=== PATIENT | female | born 1955 | race Caucasian/White ===

== ENCOUNTER → 2018-02-18 15:20 | Outpatient (CLI) | payer OTHER, SELFPAY ==
[2018-02-24 08:29] LABS: HPV Reflexed? NOT INDICATED
== END ==
PROVIDERS: Visit Provider Obstetrics & Gynecology
DX: Z12.4 Encounter for screening for malignant neoplasm of cervix (principal)
CPT/HCPCS: 88175; G0145

== ENCOUNTER → 2018-02-25 08:37 | Outpatient (CLI) | payer OTHER, SELFPAY ==
--- NOTE | 2018-02-25 08:40 | BI_ITS ---
MAMMOGRAPHY - BILATERAL SCREENING REASON FOR EXAM: Female, 62 years old. Routine annual screening examination. PERTINENT HISTORY: Non-contributory. TECHNIQUE: Digital bilateral breast wanda (3D mammographic acquisition) in the CC and MLO projections. 2-D mediolateral oblique (MLO) and craniocaudad (CC) views of both breasts were obtained. CAD: Full Field Digital Mammography with Computer Added Detection was performed. COMPARISON: Comparison is made with prior examination dated January 13, 2017 and August 16, 2014. FINDINGS: Breast Composition: There are scattered areas of fibroglandular density. There are no dominant masses or suspicious calcifications. No other significant abnormalities are identified. There has been no significant change since the prior study. BI/SCREENING MAMM (CAD), BILAT IMPRESSION: Stable bilateral screening mammogram. Yearly follow-up mammogram recommended. (A) ASSESSMENT CATEGORY: BIRADS Category 1: Negative. A letter regarding these results will be sent to the patient by the facility within 30 days. Approximately 10% of breast cancers are not detected by mammography. A normal mammogram should not delay biopsy of a clinically suspicious abnormality. [id number] Electronically Signed: Eusebio Juares MD at 13:37 EDT Tel [phone], Service support ,
== END ==
PROVIDERS: Family Provider Internal Medicine; PCP Internal Medicine; Visit Provider Obstetrics & Gynecology
DX: Z12.31 Encounter for screening mammogram for malignant neoplasm of breast (principal)
CPT/HCPCS: 77063; 77067

== ENCOUNTER → 2018-07-27 10:02 | Outpatient (CLI) | payer MEDICARE, OTHER, SELFPAY ==
[2017-08-21 12:50] VITALS: BMI 31.1
[2018-07-27 12:58] LABS: ALB/GLOB Ratio 1.2 RATIO (0.9-2.4); AST(SGOT) 14 U/L (15-37); Alanine Aminotransfer ALT/SGPT 31 U/L (13-56); Albumin, Serum 3.8 g/dL (3.2-5.0); Alkaline Phosphatase 83 U/L (45-117); Anion Gap 8 (5-15); BUN 9 mg/dL (7-18); BUN/Creat Ratio 12.1 RATIO (10-20); Calcium,Total 9.1 mg/dL (8.5-10.1); Chloride 106 mmol/L (98-107); Creatinine, Serum 0.74 mg/dL (0.55-1.02); EST Glomerular Filtration Rate 83 mL/min (>60); Est Glom Filt Rate - Afr Amer 101 mL/min (>60); Globulin 3.3 g/dL (2.2-4.2); Glucose 94 mg/dL (74-106); Potassium 3.9 mmol/L (3.5-5.1); Protein, Total 7.1 g/dL (6.4-8.2); Sodium Level 144 mmol/L (136-145)
[2018-07-27 13:00] LABS: Hematocrit 40.8 % (37-47); Mean Corp Hgb Conc 31.9 g/gl (32-36); Mean Corpuscular Hgb 30.3 pg (27.0-32.0); Mean Corpuscular Volume 95.1 fL (81-99); Mean Platelet Vol. 10.9 fl (6.2-12.0); Platelet Count 348 K/mm3 (150-450); RBC Distribution Width CV 13.2 % (11.6-14.6); RBC Distribution Width SD 44.5 fl (35.1-43.9); Red Blood Count 4.29 M/mm3 (4.2-5.4); White Blood Count 7.4 K/mm3 (4.4-11.0)
[2018-07-27 13:02] LABS: Scan Indicated on CBC? Y/N NO
[2018-07-27 14:49] LABS: Erythrocyte Sedimentation Rate 3 mm/hr (0-30)
== END ==
PROVIDERS: Family Provider Internal Medicine; PCP Internal Medicine; Referring Provider Internal Medicine Gastroenterology; Visit Provider Internal Medicine Gastroenterology
DX: R10.9 Unspecified abdominal pain (principal)
CPT/HCPCS: 36415; 80053; 85027; 85652

== ENCOUNTER → 2018-07-29 07:03 | Outpatient (CLI) | payer MEDICARE, OTHER, SELFPAY ==
--- NOTE | 2018-07-29 07:06 | CT_ITS ---
STUDY: CT ABDOMEN AND PELVIS WITH CONTRAST REASON FOR EXAM: Female, 63 years old. Weight loss RADIATION DOSAGE (If Supplied By Facility): CTDIvol = ( 14.69 ) mGy, DLP = ( 1086.70 ) mGycm TECHNIQUE: Transaxial images were obtained from the dome of the diaphragm to the symphysis pubis with oral contrast. Isovue 300 100 IV/Oral was administered. Sagittal and coronal images were reconstructed. Individualized dose optimization techniques were used for this CT. COMPARISON: September 04, 2016. FINDINGS: The visualized lung bases are unremarkable. There are aortic valvular calcifications. Normal liver. Normal gallbladder and extrahepatic biliary system. Normal spleen. Normal pancreas. Normal bilateral adrenal glands. Normal right kidney. Normal left kidney. There is wall thickening of the distal stomach with probable ulcers, series 2 image 42/136 through 44/136. Normal small intestine. There are multiple colonic diverticula consistent with diverticulosis. The appendix is visualized and appears normal. There is diffuse atherosclerotic calcification of the abdominal aorta, without a demonstrated aneurysm. Normal inferior vena cava. Normal retroperitoneum. Normal urinary bladder. Normal visualized uterus. There is no free fluid in the abdomen or pelvis. Normal abdominal wall. There are diffuse degenerative changes of the visualized lumbar spine. CT/Abdomen/Pelvis WITH Contrast IMPRESSION: Wall thickening of the stomach with gastritis and probable ulcers. Colonic diverticulosis. No obstruction or abscess. Electronically Signed: Titus Wren MD at 8:35 EST , Service support ,
== END ==
PROVIDERS: Family Provider Internal Medicine; PCP Internal Medicine; Referring Provider Internal Medicine Gastroenterology; Visit Provider Internal Medicine Gastroenterology
DX: R63.4 Abnormal weight loss (principal); R10.9 Unspecified abdominal pain
CPT/HCPCS: 74177; Q9967

== ENCOUNTER → 2018-08-16 15:39 | Outpatient (CLI) | payer MEDICARE, OTHER, SELFPAY ==
[2017-08-21 12:50] VITALS: BMI 31.1
--- NOTE | 2018-08-16 | IMM_PTH ---
PATIENT: VIGNESH VENCES LOC: [facility] U#:[id number] AGE/SX: 70/F ROOM: RE08/16/[address]: Dr. Bryce Coulter MD : 1955 BED: DIS: SPEC #: [id number] RECD: 08/18/18 11:44 STATUS: RIAN REAnnabelle #: [id number] JOSIE: 08/16/18 00:[address]: Bryce Coulter DEPT: IMMUNOHISTOCHEMISTRY RECD BY: Kell Fraser ENTERED: 08/18/18 11:44 SP TYPE: IMMUNO OTHR DR: Dr. Sneha Veronica DO Tissues: B - Stomach, NOS Procedures: H Pylori (initial) PHYSICIAN & INSTITUTION [place] [id number] SPECIMEN INFORMATION: Tissue Source: B - Gastric antrum/body, biopsy Clinical Info: Abdomen pain Specimen Number: [id number] CPT code: 68379 METHODOLOGY: Deparaffinized sections of prefer/formalin-fixed tissue or PAP/DQ stained slides are incubated with monoclonal/polyclonal antibodies/oligonucleotide probes. Localization is made via biotin free immunoperoxidase method. Appropriate controls are performed and reacted as expected. Results on target cell population are indicated in the following table: RESULTS: ANTIBODY / CLONE RESULT Block B H Pylori (polyclonal) negative These tests were developed and their performance characteristics determined by [facility]. They may not have been cleared or approved by the U.S. Food and Drug Administration. The FDA has determined that such clearance or approval is not necessary. INTERPRETATION: B. Gastric antrum/body, biopsy: Negative for Helicobacter pylori organisms. AM:jensen 08/25/18
--- NOTE | 2018-08-16 12:15 | EGD_PTH ---
PATIENT: VIGNESH VENCES [facility] U#:[id number] AGE/SX: 70/F ROOM: RE08/16/[address]: Dr. Bryce Coulter MD : 1955 BED: DIS: SPEC #: [id number] RECD: 08/16/18 15:17 STATUS: RIAN REAnnabelle #: [id number] JOSIE: 08/16/18 12:[address]: Bryce Coulter DEPT: SURGICAL PATHOLOGY RECD BY: Iglesia Potts ENTERED: 08/17/18 10:10 SP TYPE: EGD BIOPSY OT DR: Dr. Sneha Veronica, [facility] Tissues: A - Duodenum, NOS B - Gastric mucous membrane Procedures: Surgery Specimen Level IV HEADER OPERATION: EGD with biopsy PRE-OP DIAGNOSIS: Abdomen pain TISSUE SUBMITTED: A - Duodenum biopsy, rule out Crohn's, B - Gastric antrum/body biopsy, rule out gastritis MICROSCOPIC DIAGNOSIS A. Duodenum, biopsy: No pathologic change. No evidence of Crohn's enteritis. B. Gastric antrum/body, biopsy: Mild chronic gastritis. See comment. AM:jensen 08/18/18 COMMENT B. The results of immunohistochemistry for Helicobacter pylori will be reported separately ([id number]). MICROSCOPIC DESCRIPTION Slides are reviewed. GROSS DESCRIPTION A - Received in fixative is one container labeled with the patient's name and designated duodenum. The specimen consists of two irregular fragments of light bundy soft tissue that in aggregate measure 0.5 x 0.3 x 0.1 cm. The specimen is totally submitted in one cassette. B - Received in fixative is one container labeled with the patient's name and designated gastric antrum. The specimen consists of three irregular fragments of light bundy soft tissue that in aggregate measure 0.6 x 0.3 x 0.1 cm. The specimen is totally submitted in one cassette. / AM:jensen 08/17/18 TC:3 CPT: 86011 x2
== END ==
PROVIDERS: Family Provider Internal Medicine; PCP Internal Medicine; Referring Provider Internal Medicine Gastroenterology; Visit Provider Internal Medicine Gastroenterology
DX: R10.9 Unspecified abdominal pain (principal); K29.50 Unspecified chronic gastritis without bleeding
CPT/HCPCS: 88305; 88342

== ENCOUNTER → 2018-11-21 15:39 | Outpatient (CLI) | payer MEDICARE, OTHER, SELFPAY ==
[2017-08-21 12:50] VITALS: BMI 31.1
--- NOTE | 2018-11-17 11:54 | COLBX_PTH ---
PATIENT: VIGNESH VENCES LOC: [facility] U#:[id number] AGE/SX: 70/F ROOM: RE11/21/[address]: Dr. Bryce Coulter MD : 1955 BED: DIS: SPEC #: [id number] RECD: 11/21/18 15:27 STATUS: RIAN TANIA #: [id number] JOSIE: 11/17/18 11:[address]: Bryce Coulter DEPT: SURGICAL PATHOLOGY RECD BY: Micha Chowdary ENTERED: 11/22/18 09:24 SP TYPE: COLON BX OTHR DR: Dr. Sneha Veronica, [facility] Tissues: A - Transverse colon B - Right colon Procedures: Surgery Specimen Level IV HEADER OPERATION: Colonoscopy with polypectomy PRE-OP DIAGNOSIS: Abdomen pain TISSUE SUBMITTED: A - Transverse polyps biopsies, rule out adenoma, B - Right colon polyp biopsies, rule out adenoma MICROSCOPIC DIAGNOSIS A. Transverse colon polyps, biopsy: Fragments of tubular adenoma. B. Right colon polyp, biopsy: Fragments of tubular adenoma. MIRIAM:jensen 11/23/18 MICROSCOPIC DESCRIPTION Slides are reviewed. GROSS DESCRIPTION A - Received in fixative is one container labeled with the patient's name and designated transverse polyp biopsy. The specimen consists of multiple irregular fragments of light bundy soft tissue that in aggregate measure 2.5 x 1 x 0.3 cm. The specimen is totally submitted in one cassette. B - Received in fixative is one container labeled with the patient's name and designated right colon polyp biopsy. The specimen consists of multiple irregular fragments of light bundy soft tissue that in aggregate measure 1.5 x 0.3 x 0.1 cm. The specimen is totally submitted in one cassette. / MIRIAM:jensen 11/22/18 TC:1 CPT: 55312 x2
== END ==
PROVIDERS: Family Provider Internal Medicine; PCP Internal Medicine; Referring Provider Internal Medicine Gastroenterology; Visit Provider Internal Medicine Gastroenterology
DX: R10.9 Unspecified abdominal pain (principal)
CPT/HCPCS: 88305

== ENCOUNTER → 2019-02-28 15:47 | Outpatient (CLI) | payer MEDICARE, OTHER, SELFPAY ==
--- NOTE | 2019-02-28 15:49 | BI_ITS ---
MAMMOGRAPHY - BILATERAL SCREENING REASON FOR EXAM: Female, 63 years old. Routine annual screening examination. PERTINENT HISTORY: Non-contributory. TECHNIQUE: Digital bilateral breast angelica (3D mammographic acquisition) in the CC and MLO projections. 2-D mediolateral oblique (MLO) and craniocaudad (CC) views of both breasts were obtained. CAD: Full Field Digital Mammography with Computer Added Detection was performed. COMPARISON: Comparison is made with prior study dated February 25, 2018 and January 13, 2017. FINDINGS: Breast Composition: There are scattered areas of fibroglandular density. There are no dominant masses or suspicious calcifications. No other significant abnormalities are identified. There has been no significant change since the prior study. BI/SCREEN MAMM (CAD) W/ANGELICA BILAT IMPRESSION: Stable bilateral screening mammogram. Yearly follow-up mammogram recommended. (A) ASSESSMENT CATEGORY: BIRADS Category 1: Negative. A letter regarding these results will be sent to the patient by the facility within 30 days. Approximately 10% of breast cancers are not detected by mammography. A normal mammogram should not delay biopsy of a clinically suspicious abnormality. [id number] Electronically Signed: Eusebio Juares, at 8:56 EDT , Service support ,
--- NOTE | 2019-02-28 16:01 | BD_ITS ---
STUDY: DUAL ENERGY X-RAY ABSORPTIOMETRY / DXA REASON FOR EXAM: Female, 63 years old. The patient is postmenopausal. Loss of height. TECHNIQUE: Bone Mineral Density (BMD) measurements of lumbar spine and bilateral hips were obtained. COMPARISON: Comparison is made with prior study dated June 29, 2013. FINDINGS: Lumbar Spine (L1-L4): g/cm2 (1.011) / T-score (-1.6) / Z-score (0.0) Findings are suggestive of osteopenia with a moderate fracture risk. Left Femur Total: g/cm2 (0.925) / T-score (-0.7) / Z-score (0.6) Left Femoral Neck: g/cm2 (0.879) / T-score (-1.1) / Z-score (0.4) Right Femur Total: g/cm2 (0.843) / T-score (-1.3) / Z-score (-0.1) Right Femoral Neck: g/cm2 (0.858) / T-score (-1.3) / Z-score (0.2) The T-Scores on the most recent prior examination were: Lumbar Spine (L1-L4): There has been worsening of bone density since the previous examination. Left Femur Total: which represents a worsening of 7.9%. Right Femur Total: which represents a worsening of 13%. BD/Dexa Bone Density Study IMPRESSION: The patient is considered osteopenic as outlined below according to World Trevor Organization (WHO) criteria with a moderate fracture risk. There has been worsening of bone density since the previous examination. Reference Information: The T-score is the number of standard deviations above or below the standard which is normal for young adults at their peak bone mineral density. The World Health Organization (WHO) interprets the T-scores as follows: Above -1 Normal bone density Between -1 and -2.5 Osteopenia Equal to / or below -2.5 Osteoporosis As a practical clinical guideline, osteopenia may be graded as follows: Mild -1 through -1.5 Moderate -1.6 through -2.0 Severe -2.1 through -2.4 The Z-score is the number of standard deviations above or below age-matched controls. A Z-score of less than -1.5 would be considered abnormal. References: 1. NIH Osteoporosis and Related Bone Diseases http://www.osteo.org 2. International Society for Clinical Densitometry http://www.iscd.org 3. National Osteoporosis Foundation http://www.nof.org Electronically Signed: Eusebio Juares, at 11:17 EDT , Service support ,
== END ==
PROVIDERS: Family Provider Internal Medicine; PCP Internal Medicine; Referring Provider Internal Medicine; Visit Provider Internal Medicine
DX: Z12.31 Encounter for screening mammogram for malignant neoplasm of breast (principal); Z78.0 Asymptomatic menopausal state; M85.80 Other specified disorders of bone density and structure, unspecified site
CPT/HCPCS: 77063; 77067; 77080

== ENCOUNTER → 2019-08-31 08:45 | Outpatient (CLI) | payer MEDICARE, OTHER, SELFPAY ==
--- NOTE | 2019-08-31 08:49 | RAD_ITS ---
STUDY: X-RAY CHEST REASON FOR EXAM: Female, 64 years old. INCREASED DIFFICULTY BREATHING, RECOVERING FROM SINUS INFECTION, NO FEVERS, IRRITATING WET COUGH NOT REALLY PAINFUL TECHNIQUE: PA and lateral views of the chest. COMPARISON: Comparison is made with prior examination dated May 19, 2016. FINDINGS: Hyperinflation. Scattered calcified granulomas. There is no demonstrated pleural abnormality. Normal size heart. Normal mediastinum and ella. There is prominence of the pulmonary hilar arteries without peripheral pulmonary vascular congestion, suggesting pulmonary hypertension. Normal visualized aortic arch and descending thoracic aorta. There are diffuse degenerative changes of the visualized thoracic spine. Normal visualized ribs, clavicles, and shoulders. There is no demonstrated abnormality of the visualized soft tissue structures of the upper abdomen. RAD/Chest PA and Lateral IMPRESSION: Hyperinflation. No acute abnormality is seen. Stable examination. Electronically Signed: Eusebio Juares, at 9:19 EDT , Service support ,
[2019-08-31 10:11] LABS: D-Dimer Quantitative (DVT/PE) 0.39 FEU/ug/m (0.27-0.49)
== END ==
PROVIDERS: PCP Internal Medicine; Referring Provider Internal Medicine; Visit Provider Internal Medicine
DX: R06.02 Shortness of breath (principal)
CPT/HCPCS: 71046; 85379

== ENCOUNTER 2019-09-05 17:34 | Emergency (ER) | payer MEDICARE, OTHER, SELFPAY ==
[2019-09-05 17:27] VITALS: BMI 31.1
[2019-09-05 17:35] VITALS: BP 161/77; PULSE 73; RESP 18; TEMP 36.2; O2SAT 97; BMI 28.2
--- NOTE | 2019-09-05 18:00 | EKG12_ITS ---
Test Reason : SHORTNESS OF BREATH Blood Pressure : / mmHG Vent. Rate : 066 BPM Atrial Rate : 066 BPM P-R Int : 166 ms QRS Dur : 096 ms QT Int : 384 ms P-R-T Axes : 058 -08 028 degrees QTc Int : 402 ms Normal sinus rhythm Voltage criteria for left ventricular hypertrophy Abnormal ECG Confirmed by ELIZABETH BREWER, JENNIFER ([id number]), brands editor ROSS BLACKWELL ([id number]) on 09/07/2019 1:35:11 PM Referred By: MARY Confirmed By:JENNIFER JOHNSON MD
--- NOTE | 2019-09-05 18:10 | RAD_ITS ---
STUDY: X-RAY CHEST REASON FOR EXAM: Female, 64 years old. shortness of breath, dry cough TECHNIQUE: Portable chest COMPARISON: 08/31/2019. FINDINGS: There is no interval change. The lungs are clear and expanded. There is no demonstrated pleural abnormality. Normal size heart. Normal mediastinum and ella. Normal visualized pulmonary arteries. Normal visualized aortic arch and descending thoracic aorta. Normal visualized thoracic spine. Normal visualized ribs, clavicles, and shoulders. There is no demonstrated abnormality of the visualized soft tissue structures of the upper abdomen. RAD/Chest 1 View (Portable) IMPRESSION: Normal x-ray examination of the chest. Electronically Signed: Donovan Cain, at 18:29 EDT Tel , Service support ,
[2019-09-05 18:12] VITALS: BP 167/77; PULSE 73; RESP 17; O2SAT 94; O2SAT 95
[2019-09-05] MEDS: Aspirin 81 MG TAB.CHEW 162 MG PO (18:19)
[2019-09-05 18:21] LABS: Absolute Lymphocyte Count 3.78 X10^3/uL (0.83-4.51); Absolute Neutrophil Count 6.7 X10^3/uL (2.0-7.7); Basophil# 0.04 X10^3/uL; Basophil% 0.3 % (0-1); Eosinophil# 0.14 X10^3/uL; Eosinophils% 1.2 % (0-5); Hematocrit 39.4 % (37-47); Hemoglobin 12.5 g/dL (12.0-15.0); Lymphocyte # 3.78 X10^3/ul (4.0); Lymphocyte % 32.9 % (19-41); Mean Corp Hgb Conc 31.7 g/dL (32-36); Mean Corpuscular Hgb 29.8 pg (27.0-32.0); Mean Corpuscular Volume 93.8 fL (81-99); Mean Platelet Vol. 9.6 fl (6.2-12.0); Monocyte# 0.81 X10^3/uL; NRBC Flagged by Analyzer 0 % (0-5); Neutrophil # 6.67 X10^3/uL (2.7-7.7); Neutrophil % 58.1 % (47-70); Platelet Count 394 K/mm3 (150-450); RBC Distribution Width CV 12.9 % (11.6-14.6); RBC Distribution Width SD 44.5 fl (35.1-43.9); White Blood Count 11.5 K/mm3 (4.4-11.0)
[2019-09-05 18:33] LABS: Anion Gap 6 (5-15); BUN 15 mg/dL (7-18); BUN/Creat Ratio 18.5 RATIO (10-20); Chloride 109 mmol/L (98-107); Creatinine, Serum 0.81 mg/dL (0.55-1.02); EST Glomerular Filtration Rate 75 mL/min (>60); Est Glom Filt Rate - Afr Amer 91 mL/min (>60); Estimated Creatinine Clearance 68.92 ml/min; Glucose 146 mg/dL (74-106); Potassium 3.9 mmol/L (3.5-5.1); Sodium Level 141 mmol/L (136-145)
[2019-09-05 18:43] LABS: BNP,B-Type NATRIURETIC PEPTIDE 23.9 pg/mL (0-100)
--- NOTE | 2019-09-05 18:52 | ED.DCSUM_ITS ---
- ER Visit Summary Date of Service: 09/05/19 Chief Complaint: [Shortness of breath] History of Present Illness: The patient is a 64 F [presents to the emergency department complaint of shortness of breath that started 3 days ago. Patient has actually been having symptoms for about 3 weeks of cough initially and chest discomfort for which she was treated with Zithromax and steroids. She started feeling bad again about 6 days ago and was seen again by primary care physician and started on Solu-Medrol injection which took about 2 days to make her feel better but then she started feeling bad again 3 days ago. Patient says her cough is mostly resolved at this point. She denies any chest discomfort. Dyspnea is not exertional. She denies any chest pain currently. Patient has history of asthma and states that she normally does not wheeze when she has her asthma. Patient states that she had a chest x-ray 5 days ago as well as d-dimer which was negative. She denies recent travel or surgery.] Physical Examination: [HEENT-PERRLA, EOMI. Cranial nerves II through XII grossl y intact. TMs clear. Mucous membranes moist. No adenopathy. Cardiovascular-regular rate and rhythm without murmur or ectopy Lungs-clear to auscultation, chest wall stable without crepitus or subcu emphysema Abdomen-normoactive bowel sounds, soft, nontender, no rebound or rigidity, no peritoneal signs. Extremities-intact ?4, normal range of motion, normal pulses, atraumatic] Test Results: [EKG obtained arrival showed a sinus rhythm with a ventricular rate of 66 bpm with no acute segment changes. CBC with differential showed a white count of 11.5 as well as hemoglobin 12.5, hematocrit 39, platelet 394. Chemistries unremarkable. Troponin is less than 0.015. BNP was 23.9.] Emergency Department Course and Treatment: [Patient will be given a dose of Solu-Medrol again. She cannot take prednisone she tells me only Medrol.] Treatment Plan: [Patient advised to quarantine self for next 14 days. Patient etiology of dyspnea is unclear at this time. She understands I cannot rule out the novel coronavirus as the etiology of her symptoms.] Disposition: [Discharged home in stable condition] Impression: [Dyspnea-etiology uncertain] This note was generated with Veam Videoation software. It may contain incorrect words, spelling, and punctuation that were not noted in review of the chart prior to signing ED Disposition - Plan for ED Patient: Referrals: Sneha Veronica DO [Primary Care Provider] -
--- NOTE | 2019-09-05 19:01 | ED.DEP ---
ED Disposition - Plan for ED Patient: Instructions: ED Dyspnea Prescriptions: MethylPREDNISolone DosePak [Medrol DosePak] 4 mg PO UD #1 box Transmission Status: Pending to [id number] Referrals: Sneha Veronica DO [Primary Care Provider] - 5-7 Days
[2019-09-05] MEDS: MethylPREDNISolone 125 MG/2 ML Vial 80 MG IV (19:15)
[2019-09-05 19:18] VITALS: BP 145/68; PULSE 68; RESP 17; TEMP 37.1; O2SAT 95
== END 2019-09-05 19:22 | disposition home or self-care (01) ==
LOC: ED 18:45
PROVIDERS: Emergency Provider Emergency Medicine; PCP Internal Medicine
DX: R06.02 Shortness of breath (principal)
CPT/HCPCS: 71045; 80048; 83880; 84484; 85025; 93005; 96374; 99284; A4216

== ENCOUNTER 2019-09-13 22:13 | Emergency (ER) | payer MEDICARE, OTHER, SELFPAY ==
[2019-09-13 22:15] VITALS: BP 160/90; PULSE 82; RESP 16; TEMP 36.6; O2SAT 97; BMI 31.1
[2019-09-13 22:34] VITALS: BP 160/73; PULSE 73; RESP 18; O2SAT 96
--- NOTE | 2019-09-13 22:36 | EKG12_ITS ---
Test Reason : SOB Blood Pressure : / mmHG Vent. Rate : 067 BPM Atrial Rate : 067 BPM P-R Int : 156 ms QRS Dur : 096 ms QT Int : 382 ms P-R-T Axes : 057 -03 027 degrees QTc Int : 403 ms Normal sinus rhythm Moderate voltage criteria for LVH, may be normal variant Borderline ECG Confirmed by FAHAD BREWER, CAIN ([id number]), assistant production editor ROSS BLACKWELL ([id number]) on 09/19/2019 2:06:18 PM Referred By: RAJ Confirmed By:NATHALIA VÁSQUEZ MD
--- NOTE | 2019-09-13 22:37 | CT_ITS ---
STUDY: CTA CHEST REASON FOR EXAM: Female, 64 years old. INCREASED SOB X 1 MONTH, HS ASTHMA RADIATION DOSAGE (If Supplied By Facility): CTDIvol = ( 15.20 ) mGy, DLP = ( 498.06 ) mGycm TECHNIQUE: The examination was performed with the intravenous administration of IV 100mL Isovue-370. Post-processing of the angiographic images was performed, with multiplanar reformation and 3D reconstruction. Individualized dose optimization techniques were used for this CT. COMPARISON: Portable chest radiograph of September 05, 2019 and a prior chest CT exam of September 16, 2012 FINDINGS: Normal enhancement of the main pulmonary artery and right and left pulmonary arteries. Normal enhancement of the bilateral peripheral pulmonary arteries. There is no demonstrated pulmonary embolism. Normal thoracic aorta and visualized great vessels. There is no demonstrated aortic dissection. Normal heart and pericardium. Normal mediastinum. Normal hilar regions. Normal visualized trachea and bronchi. Minimal linear atelectatic changes of the lingula and left lower lobe. 3 mm left lower lobe nodule not changed from prior exam. Normal pulmonary parenchyma. Normal pleura. Normal chest wall structures. There are degenerative changes of thoracic spine. Normal visualized upper abdomen. CT/CTA Chest W/WO Contrast IMPRESSION: Negative for pulmonary embolus. Normal thoracic aorta. Normal cardiac size. Negative for coronary calcification. Minimal linear type atelectatic changes of the lingula and left lower lobe. Stable 3 mm left lower lobe nodule unchanged from prior exam of 2012. No additional evaluation recommended. Electronically Signed: Cyndi Hogan MD at 23:34 EDT , Service support ,
--- NOTE | 2019-09-13 22:43 | ED.DCSUM_ITS ---
History of Present Illness Chief Complaint: Shortness of Breath Informant: Patient Onset: Days Context: Gradual Onset Timing: Intermittent Current Severity: Moderate Maximum Severity: Moderate Narrative: The patient is a 64-year-old female with medical history significant for asthma the presents to the emergency department with shortness of breath. Patient states she is been battling this intermittently for the past month. She was seen here 1 week ago. At that point, she had a negative chest x-ray. She had already completed a course of azithromycin. She was placed on prednisone, but states she did not take it immediately. Over the past 2 days, her dyspnea has returned. She has been using her inhalers with little relief. She denies chest pain. She denies any fevers or chills. She denies any nausea or vomiting. She states that her symptoms have just seem to be persistent despite home therapy. Prior similar symptoms: Yes Recent Illness/Hospitalization: No Past Medical History - Allergies and Home Meds Allergies/Adverse Reactions: Allergies milk Allergy (Verified 09/13/19 22:14) Other CAN'T BREATHE soy Allergy (Verified 09/13/19 22:14) Other CAN'T BREATHE budesonide [From Symbicort] Adverse Reaction (Verified 09/13/19 22:14) Other ciprofloxacin [From Cipro] Adverse Reaction (Verified 09/13/19 22:14) Rash fluticasone furoate [From Arnuity Ellipta] Adverse Reaction (Verified 09/13/19 22:14) Other DOESN'T WORK PER formoterol [From Dulera] Adverse Reaction (Verified 09/13/19 22:14) Other DIDN'T WORK PER [employer] guaifenesin Adverse Reaction (Verified 09/13/19 22:14) Other KEEPS ME AWAKE hydrocodone bitartrate [From Vicodin] Adverse Reaction (Verified 09/13/19 22:14) heart races, headache *NOTE: Pt is not allergic to Tylenol meperidine [From Demerol] Adverse Reaction (Verified 09/13/19 22:14) Other HYPERACTIVITY mometasone furoate [From Asmanex Twisthaler] Adverse Reaction (Verified 09/13/19 22:14) Nausea/Vom/Diarrhea propoxyphene [From Darvocet-N] Adverse Reaction (Verified 09/13/19 22:14) Unknown PRESERVATIVE Allergy (Uncoded 09/13/19 22:14) Other CAN'T BREATHE Primary Care Physician: Sneha Veronica DO [Primary Care Provider] - Prior records reviewed: Yes Past Medical History: - Surgical History: noncontributory - Asthma, - - Laparoscopic knee surgery Smoking Status: Never smoker - Family History Maternal Family History: Reports: Diabetes Review of Systems General: Denies: Chills, Fever, Sweats Eyes: Denies: Visual changes - bilaterally, Diplopia ENT: Denies: Rhinorrhea, Sore throat Cardiovascular: Denies: Chest pain, Palpitations Respiratory: Reports: Dyspnea, Cough. Denies: Dyspnea on exertion Gastrointestinal: Denies: Abdominal pain, Nausea, Vomiting, Diarrhea, Melena, Hematochezia Genitourinary: Denies: Dysuria, Hematuria, Frequency Musculoskeletal: Denies: Back pain, Extremity Pain Skin: Denies: Rash, Wounds Neurological: Denies: Headache, Weakness, Numbness Physical Exam Vital Signs/Narrative: Vital Signs Temp Pulse Resp BP Pulse Ox 09/13/19 22:34 73 18 160/73 H 96 09/13/19 22:15 97.9 F 82 16 160/90 H 97 Inital Vital Signs reviewed: Yes General: Well nourished, Well developed, No Acute Distress Head: Normocephalic, Atraumatic Eyes: Perrl, EOMI ENT: Moist mucous membranes, No rhinorrhea Neck: Supple, Nontender Cardiovascular: Regular rate, Regular rhythm, No murmurs Respiratory: No distress, CTA bilaterally, Chest nontender Abdomen: Soft, Nontender, Nondistended, Normal bowel sounds Back: Nontender, Normal Inspection Extremities: Nontender, No edema Skin: Normal color, No rash Neurological: Alert, Oriented x3, Cranial nerves II-XII grossly intact, Normal Strength, Normal Sensation Psychological: Normal affect, Normal Mood Diagnostic/Tx/Re-eval Clinical Impression(s) from Imaging Studies Chest CTA 09/13/19 22:37 IMPRESSION: Negative for pulmonary embolus. Normal thoracic aorta. Normal cardiac size. Negative for coronary calcification. Minimal linear type atelectatic changes of the lingula and left lower lobe. Stable 3 mm left lower lobe nodule unchanged from prior exam of 2013. No additional evaluation recommended. Electronically Signed: Cyndi Hogan MD at 23:34 EDT , Service support , Abnormal Lab Results 09/13/19 09/13/19 22:30 22:30 WBC 10.4 RBC 4.29 Hgb 13.3 Hct 40.0 MCV 93.2 MCH 31.0 MCHC 33.3 RDW Std Deviation 44.0 H RDW Coeff of Brian 13.1 Plt Count 363 MPV 10.3 Immature Gran % (Auto) 0.700 Neut % (Auto) 84.2 H Lymph % (Auto) 12.2 L [place] % (Auto) 2.4 Eos % (Auto) 0.2 Baso % (Auto) 0.3 Absolute Neuts (auto) 8.8 H Absolute Lymphs (auto) 1.27 Nucleated RBC % 0 Sodium 142 Potassium 4.8 Chloride 109 H Carbon Dioxide 25.0 Anion Gap 8 BUN 20 H Creatinine 0.87 Estim Creat Clear Calc 66.47 Est GFR (MDRD) Af Amer 84 Est GFR (MDRD) Non-Af 70 BUN/Creatinine Ratio 23.1 H Glucose 146 H Calcium 9.0 Total Bilirubin 0.20 AST 18 ALT 30 Alkaline Phosphatase 76 Troponin I < 0.015 Total Protein 7.1 Albumin 3.7 Globulin 3.4 Albumin/Globulin Ratio 1.1 - Medical Decision Making The patient presents with cough and shortness of breath. She does have a history of asthma. She has a scant wheeze. There is no tachypnea or hypoxia. She was prescribed a Medrol 1 week ago, but did not start taking it until today. Metabolic work-up was pursued. EKG showed sinus rhythm without acute ischemic change. Cardiac enzymes were negative. Given her persistent dyspnea despite steroid and antibiotic treatment, I did want to rule out pulmonary embolus. CTA was obtained. There was no evidence of PE, pneumothorax, effusion, enlarged cardiac silhouette, or coronary calcifications. I do feel that this is more likely just persistent inflammation of her bronchial tree. I did direct care counselor the patient to continue her Medrol. Again, she has no hypoxia, tachycardia, or tachypnea. She speaks in full sentences. I do not feel that she is requiring admission. She is comfortable with this plan of care. Impression 1. Asthma exacerbation ED Disposition - Plan for ED Patient: Instructions: ED Bronchitis Asthmatic Referrals: Sneha Veronica DO [Primary Care Provider] -
[2019-09-13 22:46] LABS: Absolute Lymphocyte Count 1.27 X10^3/uL (0.83-4.51); Absolute Neutrophil Count 8.8 X10^3/uL (2.0-7.7); Basophil# 0.03 X10^3/uL; Basophil% 0.3 % (0-1); Eosinophil# 0.02 X10^3/uL; Eosinophils% 0.2 % (0-5); Hemoglobin 13.3 g/dL (12.0-15.0); Lymphocyte # 1.27 X10^3/ul (4.0); Lymphocyte % 12.2 % (19-41); Mean Corp Hgb Conc 33.3 g/dL (32-36); Mean Corpuscular Volume 93.2 fL (81-99); Mean Platelet Vol. 10.3 fl (6.2-12.0); Monocyte# 0.25 X10^3/uL; Monocyte% 2.4 % (0-10); NRBC Flagged by Analyzer 0 % (0-5); Neutrophil # 8.76 X10^3/uL (2.7-7.7); Neutrophil % 84.2 % (47-70); Platelet Count 363 K/mm3 (150-450); RBC Distribution Width CV 13.1 % (11.6-14.6); Red Blood Count 4.29 M/mm3 (4.2-5.4); White Blood Count 10.4 K/mm3 (4.4-11.0)
[2019-09-13 23:08] LABS: ALB/GLOB Ratio 1.1 RATIO (0.9-2.4); AST(SGOT) 18 U/L (15-37); Alanine Aminotransfer ALT/SGPT 30 U/L (13-56); Albumin, Serum 3.7 g/dL (3.2-5.0); Alkaline Phosphatase 76 U/L (45-117); Anion Gap 8 (5-15); BUN 20 mg/dL (7-18); BUN/Creat Ratio 23.1 RATIO (10-20); Chloride 109 mmol/L (98-107); Creatinine, Serum 0.87 mg/dL (0.55-1.02); EST Glomerular Filtration Rate 70 mL/min (>60); Est Glom Filt Rate - Afr Amer 84 mL/min (>60); Estimated Creatinine Clearance 66.47 ml/min; Globulin 3.4 g/dL (2.2-4.2); Glucose 146 mg/dL (74-106); Potassium 4.8 mmol/L (3.5-5.1); Protein, Total 7.1 g/dL (6.4-8.2); Sodium Level 142 mmol/L (136-145)
[2019-09-13 23:49] VITALS: BP 176/79; PULSE 70; RESP 16; O2SAT 94
== END 2019-09-13 23:50 | disposition home or self-care (01) ==
LOC: ED 23:01
PROVIDERS: Emergency Provider Emergency Medicine; PCP Internal Medicine
DX: J45.901 Unspecified asthma with (acute) exacerbation (principal)
CPT/HCPCS: 71275; 80053; 84484; 85025; 93005; 99284; Q9967

== ENCOUNTER → 2020-01-03 07:50 | Outpatient (CLI) | payer MEDICARE, OTHER, SELFPAY ==
[2019-12-27 05:46] VITALS: BMI 31.0
[2020-01-03 08:51] VITALS: PULSE 101; PULSE 70; PULSE 73; PULSE 92; PULSE 99; O2SAT 93; O2SAT 94; O2SAT 95; O2SAT 96
--- NOTE | 2020-01-03 13:35 | PCM.PSN.6M ---
PSN 6 Minute Walk Test - 6 Minute Walk Test 6 Minute Walk Test: 6 Minute Walk Test PSN:6-Minute Walk Test Start: 01/03/20 08:48 Freq: Status: Active Protocol: [id number] Document 01/03/20 08:51 FR (Rec: 01/03/20 08:59 FR [id number]) 6 Minute Walk Test Date Performed 01/03/20 Time Performed 08:00 Height 5 ft 8 in Weight: 95.254 kg Weight in Pounds 210.[address]: Dr. Fry Assistive device used: None Pre-test Oxygen Delivery Method Room Air Pulse Ox (%) 95 Pulse Rate (60-100 beats/min) 70 Dyspnea Mike Scale (0-10) 3 Exertion Mike Scale (6-20) 6 1st minute Oxygen Delivery Method Room Air Pulse Ox (%) 96 Pulse Rate (60-100 beats/min) 92 2nd minute Oxygen Delivery Method Room Air Pulse Ox (%) 95 Pulse Rate (60-100 beats/min) 101 H 3rd minute Oxygen Delivery Method Room Air Pulse Ox (%) 93 Pulse Rate (60-100 beats/min) 101 H 4th minute Oxygen Delivery Method Room Air Pulse Ox (%) 94 Pulse Rate (60-100 beats/min) 99 5th minute Oxygen Delivery Method Room Air Pulse Ox (%) 94 Pulse Rate (60-100 beats/min) 99 6th minute Oxygen Delivery Method Room Air Pulse Ox (%) 94 Pulse Rate (60-100 beats/min) 99 Reported Symptoms Increased Work of Breathing Post-test Oxygen Delivery Method Room Air Pulse Ox (%) 95 Pulse Rate (60-100 beats/min) 73 Dyspnea Mike Scale (0-10) 3 Exertion Mike Scale (6-20) 6 Full Laps Walked 25 Partial Lap, Number of Tiles Walked 24 Total Distance Walked (ft) 1499 - Interpretation Interpretation: The patient was able to ambulate 1499 feet over the course of 6 minutes on room air with no assistive devices or breaks. Patient's lowest saturation was 93% and peak heart rate was 101 bpm. These findings are consistent with a normal walking oximetry. - Recommendations Recommendations: No supplemental oxygen is indicated at this time.
== END ==
PROVIDERS: PCP Internal Medicine; Referring Provider Internal Medicine Critical Care Medicine; Visit Provider Internal Medicine Critical Care Medicine
DX: R06.02 Shortness of breath (principal)
CPT/HCPCS: 94618

== ENCOUNTER → 2020-01-05 13:47 | Outpatient (CLI) | payer MEDICARE, OTHER, SELFPAY ==
[2019-12-27 05:46] VITALS: BMI 31.0
--- NOTE | 2020-01-05 13:49 | ECHOCS_ITS ---
Reason For Study: Murmur Procedure This was a 2D Doppler, Color Flow transthoracic echocardiogram. Contrast injection was performed. The study was technically difficult. Exam performed in department. Left Ventricle Mild concentric left ventricular hypertrophy. The estimated ejection fraction is 65 %. Normal diastology for age. No regional wall motion abnormalities noted. Right Ventricle Normal right ventricle. Normal systolic function. Atria The left atrium is mildly enlarged. Normal right atrium. Normal atrial septum. Mitral Valve The mitral valve is structurally normal. No prolapse or stenosis seen. Tricuspid Valve Normal tricuspid valve. Unable to estimate RV systolic pressure due to insufficient tricuspid regurgitant envelope. Aortic Valve Trisinus/trileaflet aortic valve. Moderate focal aortic valve thickening. Mild aortic stenosis. Peak aortic valve gradient 18 mmHg. Mean aortic valve gradient 8 mmHg. Calculated aortic valve area (continuity equation) is 2.3 cm2. Pulmonic Valve Normal pulmonic valve. Great Vessels Normal aortic root. Normal arch. Normal inferior vena cava. Inferior vena cava collapse with sniff. Pericardium/Pleural No pericardial effusion. Medication 22 gauge I.V. with prn adaptor inserted into right arm. Diluted definity 3ml given slow IV push to enhance endocardial definition. MMode/2D Measurements & Calculations LVIDd: 4.8 cm IVSd: 1.3 cm LVOT diam: 2.0 cm LVIDs: 2.4 cm LVPWd: 1.6 cm FS: 50.1 % LVOT area: 3.0 cm2 LA dimension: 4.5 cm LAV(MOD-bp): 79.1 ml LA A4 area: 24.3 cm2 LAV(MOD-bp) Indexed: 37.9 ml/m2 LAV(MOD-sp2): 75.2 ml LAV(MOD-sp4): 81.2 ml RA A4 area: 18.2 cm2 Time Measurements MV dec time: 0.20 sec Doppler Measurements & Calculations MV E max stephon: 93.6 cm/sec Lat Peak E' Stephon: 8.4 cm/sec Med Peak E' Stephon: 7.6 cm/sec E/E' lat: 11.2 E/E' med: 12.3 MV V2 max: 113.6 cm/sec MV P1/2t max stephon: 112.7 cm/sec Ao V2 max: 210.9 cm/sec MV max P.2 mmHg MV P1/2t: 89.2 msec Ao max P.8 mmHg MV V2 mean: 62.1 cm/sec MV dec slope: 369.8 cm/sec2 Ao V2 mean: 125.8 cm/sec MV mean P.8 mmHg Ao mean P.7 mmHg MV V2 VTI: 41.4 cm MVA(P1/2t): 2.5 cm2 Ao V2 VTI: 47.6 cm MVA(VTI): 2.6 cm2 LUKE(I,D): 2.3 cm2 LUKE(V,D): 2.3 cm2 LV V1 max: 156.5 cm/sec SV(LVOT): 109.3 ml PA V2 max: 107.9 cm/sec LV V1 max P.8 mmHg LV V1 mean P.3 mmHg LV V1 mean: 94.0 cm/sec LV V1 VTI: 35.9 cm Interpretation Summary Mild concentric left ventricular hypertrophy. The estimated ejection fraction is 65 %. Normal diastology for age. The left atrium is mildly enlarged. Unable to estimate RV systolic pressure due to insufficient tricuspid regurgitant envelope. Moderate focal aortic valve thickening. Mild aortic stenosis. Calculated aortic valve area (continuity equation) is 2.3 cm2. In comparison to echo report dated 06/23/2013, no appreciable changes noted. Ordering Physician: Olaf Fry Referring Physician: Olaf Fry Performed By: Arnel Noel RCS
== END ==
PROVIDERS: PCP Internal Medicine; Referring Provider Internal Medicine Critical Care Medicine; Visit Provider Internal Medicine Critical Care Medicine
DX: R06.02 Shortness of breath (principal); I35.8 Other nonrheumatic aortic valve disorders
CPT/HCPCS: 93306; Q9957; A4216; C8929

== ENCOUNTER → 2020-04-04 07:34 | Outpatient (CLI) | payer MEDICARE, OTHER, SELFPAY ==
[2020-04-04 06:44] VITALS: BMI 31.1
== END ==
PROVIDERS: PCP Internal Medicine; Visit Provider Internal Medicine Critical Care Medicine
DX: R06.02 Shortness of breath (principal)
CPT/HCPCS: 94667

== ENCOUNTER → 2020-09-13 08:58 | Outpatient (CLI) | payer MEDICARE, OTHER, SELFPAY ==
[2020-04-04 06:44] VITALS: BMI 31.1
--- NOTE | 2020-09-13 09:00 | CT_ITS ---
STUDY: CT ABDOMEN AND PELVIS WITH CONTRAST REASON FOR EXAM: Female, 65 years old. LOWER ABD PAIN. 30 pound weight loss. Prior left inguinal hernia repair. RADIATION DOSAGE (If Supplied By Facility): CTDIvol = ( 17.07 ) mGy, DLP = ( 945.30 ) mGycm TECHNIQUE: Transaxial images were obtained from the dome of the diaphragm to the symphysis pubis with oral contrast. Oral and amp; IV Gastrografin and amp; 100mL Isovue-300 was administered. Sagittal and coronal images were reconstructed. Individualized dose optimization techniques were used for this CT. COMPARISON: Comparison is made with prior study dated 07/29/2018. FINDINGS: The visualized lung bases are unremarkable. Small pericardial effusion. Stable aortic valve calcifications. Normal liver. Normal gallbladder and extrahepatic biliary system. Normal spleen. Normal pancreas. Normal bilateral adrenal glands. 1 cm cyst is seen in the lower pole of the right kidney. Normal left kidney. There is a small hiatal hernia. Normal small intestine. There are multiple colonic diverticula consistent with diverticulosis. The appendix is visualized and appears normal. There is diffuse atherosclerotic calcification of the abdominal aorta, without a demonstrated aneurysm. Normal inferior vena cava. Normal retroperitoneum. Normal urinary bladder. Phleboliths are seen in the pelvis. Normal abdominal wall. There are diffuse degenerative changes of the visualized lumbar spine. CT/Abdomen/Pelvis WITH Contrast IMPRESSION: Small pericardial effusion. Electronically Signed: Eusebio Juares MD at 11:59 EDT , Service support ,
[2020-09-13 10:03] LABS: Absolute Neutrophil Count 5.1 X10^3/uL (2.0-7.7); Basophil# 0.03 X10^3/uL; Basophil% 0.4 % (0-1); Eosinophil# 0.11 X10^3/uL; Eosinophils% 1.5 % (0-5); Hematocrit 39.7 % (37-47); Hemoglobin 12.6 g/dL (12.0-15.0); Lymphocyte % 22.9 % (19-41); Mean Corp Hgb Conc 31.7 g/dL (32-36); Mean Corpuscular Hgb 30.1 pg (27.0-32.0); Mean Corpuscular Volume 94.7 fL (81-99); Mean Platelet Vol. 10.6 fl (6.2-12.0); Monocyte% 6.7 % (0-10); NRBC Flagged by Analyzer 0 % (0-5); Neutrophil # 5.08 X10^3/uL (2.7-7.7); Neutrophil % 68.4 % (47-70); Platelet Count 380 K/mm3 (150-450); RBC Distribution Width CV 12.8 % (11.6-14.6); RBC Distribution Width SD 44.5 fl (35.1-43.9); Red Blood Count 4.19 M/mm3 (4.2-5.4); White Blood Count 7.4 K/mm3 (4.4-11.0)
[2020-09-13 10:40] LABS: ALB/GLOB Ratio 1.4 RATIO (0.9-2.4); AST(SGOT) 17 U/L (15-37); Alanine Aminotransfer ALT/SGPT 36 U/L (13-56); Albumin, Serum 3.7 g/dL (3.2-5.0); Alkaline Phosphatase 82 U/L (45-117); Anion Gap 5 (5-15); BUN 13 mg/dL (7-18); BUN/Creat Ratio 24.1 RATIO (10-20); Calcium,Total 9.1 mg/dL (8.5-10.1); Chloride 108 mmol/L (98-107); Creatinine, Serum 0.54 mg/dL (0.55-1.02); EST Glomerular Filtration Rate 120 mL/min (>60); Est Glom Filt Rate - Afr Amer 145 mL/min (>60); Globulin 2.7 g/dL (2.2-4.2); Glucose 97 mg/dL (74-106); Protein, Total 6.4 g/dL (6.4-8.2); Sodium Level 142 mmol/L (136-145)
== END ==
PROVIDERS: PCP Internal Medicine; Visit Provider Nurse Practitioner
DX: R10.30 Lower abdominal pain, unspecified (principal); I31.3 Pericardial effusion (noninflammatory)
CPT/HCPCS: 74177; 80053; 85025; Q9967

== ENCOUNTER → 2020-09-24 07:43 | Outpatient (CLI) | payer MEDICARE, OTHER, SELFPAY ==
[2020-09-18 07:40] VITALS: BMI 28.5
--- NOTE | 2020-09-24 07:46 | ECHOCS_ITS ---
Reason For Study: PERICARDIAL EFFUSION Procedure This was a 2D Doppler, Color Flow transthoracic echocardiogram. The study was technically difficult. Contrast injection was performed. Exam performed in department. Left Ventricle Normal LV size. Mild concentric left ventricular hypertrophy. Left ventricular systolic function is normal. The estimated ejection fraction is 65 %. Diastolic function is indeterminate. No regional wall motion abnormalities noted. Right Ventricle Normal RV size. Normal systolic function. Atria The left atrium is mildly enlarged. Normal right atrium. No doppler evidence for ASD. Mitral Valve There is no mitral annular calcification. Normal mitral valve. Equivocal mitral valve prolapse. Trivial mitral valve insufficiency. Tricuspid Valve Normal tricuspid valve. Trivial tricuspid valve insufficiency. Right ventricular systolic pressure estimated to be 32 mmHg. Aortic Valve Trisinus/trileaflet aortic valve. Moderate focal aortic valve calcification. Pulmonic Valve The pulmonic valve is not well visualized. Trivial pulmonic valve insufficiency. Great Vessels Mildly dilated aortic root. Pericardium/Pleural Trivial pericardial effusion. There are no echocardiographic indications of cardiac tamponade. Medication 22 gauge I.V. with prn adaptor inserted into right arm. Diluted definity 3.0ml given slow IV push to enhance endocardial definition. MMode/2D Measurements & Calculations LVIDd: 4.4 cm IVSd: 1.3 cm LVOT diam: 2.0 cm LVIDs: 3.1 cm LVPWd: 1.3 cm RVDd: 3.5 cm FS: 29.5 % LVOT area: 3.0 cm2 Ao root diam: 4.0 cm LAV(MOD-bp): 86.4 ml LVAd ap4: 36.1 cm2 LAV(MOD-bp) Indexed: 43.4 ml/m2 EDV(MOD-sp4): 125.0 ml LAV(MOD-sp2): 83.7 ml EDV(sp4-el): 128.9 ml LAV(MOD-sp4): 86.2 ml LVAs ap4: 21.4 cm2 ESV(MOD-sp4): 47.8 ml ESV(sp4-el): 48.6 ml EF(MOD-sp4): 61.8 % EF(sp4-el): 62.3 % SV(MOD-sp4): 77.2 ml SV(sp4-el): 80.3 ml LA A4 area: 25.4 cm2 LA dimension(2D): 4.4 cm RA A4 area: 14.7 cm2 Time Measurements MV dec time: 0.19 sec Doppler Measurements & Calculations MV E max stephon: 77.1 cm/sec Lat Peak E' Stephon: 5.7 cm/sec Med Peak E' Stephon: 5.6 cm/sec MV A max stephon: 88.7 cm/sec E/E' lat: 13.6 E/E' med: 13.7 MV E/A: 0.87 Ao V2 max: 169.4 cm/sec LV V1 max: 160.9 cm/sec PA V2 max: 107.7 cm/sec Ao max P.5 mmHg LV V1 max P.4 mmHg LUKE(V,D): 2.9 cm2 PI end-d stehpon: 80.1 cm/sec TR max stephon: 269.0 cm/sec TR max P.9 mmHg ECHO/Echo Complete W/ Contrast Interpretation Summary The study was technically difficult. Contrast injection was performed. Left ventricular systolic function is normal. The estimated ejection fraction is 65 %. Mild concentric left ventricular hypertrophy. The left atrium is mildly enlarged. Trivial mitral valve insufficiency. Trivial tricuspid valve insufficiency. Moderate focal aortic valve calcification. Trivial pulmonic valve insufficiency. Mildly dilated aortic root. Trivial pericardial effusion. There are no echocardiographic indications of cardiac tamponade. Right ventricular systolic pressure estimated to be 32 mmHg. Diastolic function is indeterminate. Ordering Physician: Nerissa Rush Referring Physician: MODESTA ISIDRO Performed By: Chhaya Espinoza, VIN, RVT
== END ==
PROVIDERS: PCP Internal Medicine; Visit Provider Nurse Practitioner
DX: I31.3 Pericardial effusion (noninflammatory) (principal)
CPT/HCPCS: 93306; Q9957; A4216; C8929

== ENCOUNTER → 2020-10-04 08:28 | Outpatient (CLI) | payer MEDICARE, OTHER, SELFPAY ==
[2020-04-04 06:44] VITALS: BMI 31.1
[2020-09-18 07:40] VITALS: BMI 28.5
--- NOTE | 2020-10-04 08:30 | BI_ITS ---
MAMMOGRAPHY - BILATERAL SCREENING REASON FOR EXAM: Female, 65 years old. Routine annual screening examination. PERTINENT HISTORY: Non-contributory. TECHNIQUE: Digital bilateral breast angelica (3D mammographic acquisition) in the CC and MLO projections. 2-D mediolateral oblique (MLO) and craniocaudad (CC) views of both breasts were obtained. CAD: Full Field Digital Mammography with Computer Added Detection was performed. COMPARISON: Comparison is made with prior examination dated 02/28/2019 and 02/25/2018. FINDINGS: Breast Composition: There are scattered areas of fibroglandular density. There are no dominant masses or suspicious calcifications. No other significant abnormalities are identified. There has been no significant change since the prior study. BI/SCRN MAMM (CAD)W/ANGELICA BILAT IMPRESSION: Stable bilateral screening mammogram. Yearly follow-up mammogram recommended. (A) ASSESSMENT CATEGORY: BIRADS Category 1: Negative. A letter regarding these results will be sent to the patient by the facility within 30 days. Approximately 10% of breast cancers are not detected by mammography. A normal mammogram should not delay biopsy of a clinically suspicious abnormality. [id number] Electronically Signed: Eusebio Juares MD at 9:31 EDT , Service support ,
== END ==
PROVIDERS: PCP Internal Medicine; Referring Provider Student in an Organized Health Care Education/Training Program; Visit Provider Student in an Organized Health Care Education/Training Program
DX: Z12.31 Encounter for screening mammogram for malignant neoplasm of breast (principal)
CPT/HCPCS: 77063; 77067

== ENCOUNTER → 2020-10-15 14:39 | Outpatient (CLI) | payer MEDICARE, OTHER, SELFPAY ==
[2020-09-18 07:40] VITALS: BMI 28.5
--- NOTE | 2020-10-15 14:41 | CT_ITS ---
STUDY: CT CHEST WITH CONTRAST REASON FOR EXAM: Female, 65 years old. DILATED AORTIC ROOT -- AORTIC Disease, nontraumatic RADIATION DOSAGE (If Supplied By Facility): CTDIvol = ( 10.95 ) mGy, DLP = ( 305.33 ) mGycm TECHNIQUE: Transaxial imaging was performed following intravenous administration of IV 100mL Isovue-300. Multiplanar coronal and sagittal images were reformatted. Individualized dose optimization techniques were used for this CT. COMPARISON: Comparison is made with prior examination dated 09/13/2019. FINDINGS: Slightly enlarged thyroid gland with a 1.3 cm hypodense nodule in the lower pole on the left side. Stable 3 mm noncalcified nodule in the peripheral lateral aspect of the left lower. Stable minimal increased markings at the lung bases suggest some mild scarring. There is no demonstrated pleural abnormality. Normal heart and pericardium. Normal mediastinum. Normal hilar regions. Normal enhanced pulmonary arteries. Normal aorta arch and descending thoracic aorta. The ascending thoracic aorta has a maximum transverse dimension of 36.4 mm. This is within normal limits. There are multi-level degenerative changes of the thoracic spine. Small hiatal hernia. Findings suggestive of a 1.8 cm adenoma in the left adrenal gland. CT/Chest WITH Contrast IMPRESSION: The aortic root is not dilated. Stable examination. Electronically Signed: Eusebio Juares MD at 15:14 EDT , Service support ,
== END ==
PROVIDERS: PCP Internal Medicine; Referring Provider Internal Medicine; Visit Provider Internal Medicine
DX: I77.819 Aortic ectasia, unspecified site (principal)
CPT/HCPCS: 71260; Q9967

== ENCOUNTER → 2020-12-06 07:01 | Outpatient (CLI) | payer MEDICARE, OTHER, SELFPAY ==
[2020-11-21 14:49] VITALS: BMI 28.4
--- NOTE | 2020-12-06 12:35 | STRESSREP ---
Stress Test Report Date: 12-06-2020 Procedure: Exercise tolerance test/imaging study Indications: Shortness of breath/dyspnea on exertion Consent: Per the patient Procedure: The patient exercised on a Olaf protocol for 6 minutes completing Stage II achieving a peak heart rate of 137 bpm (89% predicted maximal heart rate) with a peak blood pressure 212/82 mmHg and a peak MET capacity of 7 METs. The baseline ECG demonstrated sinus bradycardia. The peak exercise ECG demonstrated no obvious ECG changes. There were no cardiac dysrhythmias pretest, during exercise, or recovery. The blood pressure response was considered an exacerbated blood pressure response. The functional capacity was considered average. There was no complaint of chest discomfort during exercise or recovery. The examination was discontinued secondary to dyspnea. Impression: 1. Technically adequate (percent predicted maximal heart rate greater than 85%) exercise tolerance test 2. Peak exercise ECG with no obvious ECG changes 3. There were no cardiac dysrhythmias pretest, during exercise, or recovery 4. Nuclear images pending Myocardial perfusion imaging study: Technique: The patient was injected with 11.9 mCi of technetium 99m Cardiolite and subsequently rest SPECT Cardiolite nuclear imaging was obtained in the horizontal long, vertical long, and short axis views. The patient exercised on a Olaf protocol for 6 minutes completing Stage II achieving a peak heart rate of 137 bpm (89% predicted maximal heart rate) with a peak blood pressure 212/82 mmHg and a peak MET capacity of 7 METs. The patient was injected with 34.4 mCi of technetium 99m Cardiolite and subsequently stress SPECT Cardiolite nuclear imaging was obtained in the horizontal long, vertical long, and short axis views. A gated Cardiolite study at peak stress was obtained. Interpretation: Rest and stress SPECT Cardiolite nuclear imaging status post realignment, normalization, and attenuation correction, demonstrates the appearance of relative uniform tracer uptake and myocardial perfusion appearing within normal limits. There is end systolic thickening and brightening. The gated Cardiolite study demonstrates myocardial thickening and inward wall motion. The reported LVEF is 74%. Impression: 1. Rest and stress SPECT Cardiolite nuclear imaging demonstrate relative uniform tracer uptake and myocardial perfusion appearing within normal limits. 2. The gated Cardiolite study reports an LVEF of 74%. This note was generated with [employer] software. It may contain incorrect words, spelling, and punctuation that were not noted in checking the note before signing.
== END ==
PROVIDERS: PCP Internal Medicine; Referring Provider Internal Medicine Cardiovascular Disease; Visit Provider Internal Medicine Cardiovascular Disease
DX: R06.02 Shortness of breath (principal); M25.519 Pain in unspecified shoulder; I35.0 Nonrheumatic aortic (valve) stenosis; I31.3 Pericardial effusion (noninflammatory); E78.2 Mixed hyperlipidemia
CPT/HCPCS: 78452; 93017; A9500; A4216

== ENCOUNTER → 2020-12-12 12:17 | Outpatient (CLI) | payer MEDICARE, OTHER, SELFPAY ==
[2020-11-21 07:52] VITALS: BMI 28.4
[2020-11-21 14:49] VITALS: BMI 28.4
--- NOTE | 2020-12-13 10:04 | PFT ---
INTRODUCTION: The patient is a 65-year-old female that presents for pulmonary function studies secondary to a diagnosis of asthma. Respiratory therapy reports good patient effort. Bronchodilators were used during testing. INTERPRETATION: Forced expiration spirometry demonstrates no evidence of a large airways obstructive ventilatory defect. There was no significant response to aerosolized bronchodilators. Spirograms are of good quality and plateau normally. Body plethysmography was performed and revealed an elevated TLC and RV indicative of underlying hyperinflation and air trapping. Diffusing capacity by single breath CO was within normal limits. IMPRESSION: Grossly normal pulmonary function studies. Stigmata of small airways disease is present.
== END ==
PROVIDERS: PCP Internal Medicine; Referring Provider Nurse Practitioner Acute Care; Visit Provider Nurse Practitioner Acute Care
DX: J45.40 Moderate persistent asthma, uncomplicated (principal)
CPT/HCPCS: 94060; 94726; 94729

== ENCOUNTER → 2022-01-20 | Outpatient (CLI) | payer MEDICARE, OTHER, SELFPAY ==
--- NOTE | 2022-01-20 09:45 | BI_ITS ---
MAMMOGRAPHY - BILATERAL SCREENING REASON FOR EXAM: Female, 66 years old. Routine annual screening examination. PERTINENT HISTORY: Non-contributory. TECHNIQUE: Digital bilateral breast angelica (3D mammographic acquisition) in the CC and MLO projections. 2-D mediolateral oblique (MLO) and craniocaudad (CC) views of both breasts were obtained. CAD: Full Field Digital Mammography with Computer Added Detection was performed. COMPARISON: Comparison is made with prior study dated 10/04/2020 and 02/28/2019. FINDINGS: Breast Composition: There are scattered areas of fibroglandular density. There are no dominant masses or suspicious calcifications. No other significant abnormalities are identified. There has been no significant change since the prior study. BI/SCRN MAMM (CAD)W/ANGELICA BILAT IMPRESSION: Stable bilateral screening mammogram. Yearly follow-up mammogram recommended. (A) ASSESSMENT CATEGORY: BIRADS Category 1: Negative. A letter regarding these results will be sent to the patient by the facility within 30 days. Approximately 10% of breast cancers are not detected by mammography. A normal mammogram should not delay biopsy of a clinically suspicious abnormality. [id number] Electronically Signed: Eusebio Juares MD at 12:07 EDT ,
--- NOTE | 2022-01-20 09:49 | BD_ITS ---
STUDY: DUAL ENERGY X-RAY ABSORPTIOMETRY / DXA REASON FOR EXAM: Female, 66 years old. Z780. The patient is postmenopausal. TECHNIQUE: Bone Mineral Density (BMD) measurements of lumbar spine and bilateral hips were obtained. COMPARISON: Comparison is made with prior study dated 02/28/2019. FINDINGS: Lumbar Spine (L1-L4): g/cm2 (0.841) / T-score (-1.9) / Z-score (0.2) Findings are suggestive of osteopenia with a moderate fracture risk. Left Femur Total: g/cm2 (0.736) / T-score (-1.7) / Z-score (-0.3) Left Femoral Neck: g/cm2 (0.606) / T-score (-2.2) / Z-score (-0.5) Right Femur Total: g/cm2 (0.714) / T-score (-1.9) / Z-score (-0.4) Right Femoral Neck: g/cm2 (0.639) / T-score (-1.9) / Z-score (my 0.2) The T-Scores on the most recent prior examination were: Lumbar Spine (L1-L4): There has been worsening of bone density since the previous examination. Left Femur Total: which represents a worsening of 14.5%. Right Femur Total: which represents a worsening of 8.6%. BD/Dexa Bone Density Study IMPRESSION: The patient is considered osteopenic as outlined below according to World Trevor Organization (WHO) criteria with a high fracture risk. There has been worsening of bone density since the previous examination. Reference Information: The T-score is the number of standard deviations above or below the standard which is normal for young adults at their peak bone mineral density. The World Health Organization (WHO) interprets the T-scores as follows: Above -1 Normal bone density Between -1 and -2.5 Osteopenia Equal to / or below -2.5 Osteoporosis As a practical clinical guideline, osteopenia may be graded as follows: Mild -1 through -1.5 Moderate -1.6 through -2.0 Severe -2.1 through -2.4 The Z-score is the number of standard deviations above or below age-matched controls. A Z-score of less than -1.5 would be considered abnormal. References: 1. NIH Osteoporosis and Related Bone Diseases www osteo.org 2. International Society for Clinical Densitometry www iscd.org 3. National Osteoporosis Foundation www nof.org Electronically Signed: Eusebio Juares MD at 15:26 EDT ,
== END | disposition home or self-care (01) ==
LOC: OPBD 09:43
PROVIDERS: PCP Internal Medicine; Visit Provider Internal Medicine
DX: Z13.820 Encounter for screening for osteoporosis (principal); Z78.0 Asymptomatic menopausal state; Z12.31 Encounter for screening mammogram for malignant neoplasm of breast
CPT/HCPCS: 77063; 77067; 77080

== ENCOUNTER → 2022-03-02 | Outpatient (CLI) | payer MEDICARE, OTHER, SELFPAY ==
[2022-03-06 19:14] LABS: HPV APTIMA, High Risk Negative (Negative)
== END | disposition home or self-care (01) ==
LOC: LABSPEC 12:21
PROVIDERS: PCP Internal Medicine; Referring Provider Obstetrics & Gynecology; Visit Provider Obstetrics & Gynecology
DX: Z12.4 Encounter for screening for malignant neoplasm of cervix (principal); Z78.0 Asymptomatic menopausal state
CPT/HCPCS: 87624; 88175; G0145

== ENCOUNTER → 2023-02-16 | Outpatient (CLI) | payer MEDICARE, OTHER, SELFPAY ==
--- NOTE | 2023-02-16 09:51 | CT_ITS ---
STUDY: CT ABDOMEN AND PELVIS WITH CONTRAST - URINARY TRACT REASON FOR EXAM: Female, 67 years old. Abdominal pain, rule out diverticulitis vs other RADIATION DOSAGE (If Supplied By Facility): CTDIvol = ( 13.50 ) mGy, DLP = ( 908.45 ) mGycm TECHNIQUE: Oral and amp; IV Gastrografin and amp; 100mL Isovue-300 was administered. Transaxial images were obtained from the dome of the diaphragm to the symphysis pubis subsequent to intravenous contrast administration. In the arterial, nephrographic and excretory phases. Multiplanar coronal and sagittal images were reformatted. Individualized Dose Optimization Techniques Were Used For This CT. COMPARISON: Prior study dated: September 13, 2020 FINDINGS: The visualized lung bases are unremarkable. There are coronary artery calcifications. There is a small stable pericardial effusion. Normal liver. Normal gallbladder and extrahepatic biliary system. Normal spleen. Normal pancreas. Normal bilateral adrenal glands. Normal visualized stomach. Normal small intestine. There are multiple colonic diverticula consistent with diverticulosis. There is a moderate amount of stool throughout the colon. The appendix is visualized and appears normal. There is diffuse atherosclerotic calcification of the abdominal aorta, without a demonstrated aneurysm. No retroperitoneal adenopathy. Normal right kidney. Normal left kidney. Normal urinary bladder. Normal abdominal wall. There are diffuse degenerative changes of the visualized lumbar spine. CT/Abdomen/Pelvis WITH Contrast IMPRESSION: Moderate amount of stool throughout the colon. Atherosclerosis. Colonic diverticulosis. Electronically Signed: Annette Redd MD at 12:45 EDT ,
[2023-02-16 12:28] LABS: CREATININE FINGERSTICK < 0.9 mg/dL (0.55-1.02); EGFR FINGERSTICK > 60.0000 mL/min (>60)
== END | disposition home or self-care (01) ==
LOC: CT 09:51
PROVIDERS: PCP Internal Medicine; Referring Provider Nurse Practitioner Family; Visit Provider Nurse Practitioner Family
DX: R10.30 Lower abdominal pain, unspecified (principal)
CPT/HCPCS: 74177; Q9967

== ENCOUNTER → 2023-05-27 | Outpatient (CLI) | payer MEDICARE, OTHER, SELFPAY ==
--- NOTE | 2023-05-27 15:43 | BI_ITS ---
MAMMOGRAPHY - BILATERAL SCREENING REASON FOR EXAM: Female, 68 years old. Routine annual screening examination. PERTINENT HISTORY: Non-contributory. TECHNIQUE: Digital bilateral breast angelica (3D mammographic acquisition) in the CC and MLO projections. 2-D mediolateral oblique (MLO) and craniocaudad (CC) views of both breasts were obtained. CAD: Full Field Digital Mammography with Computer Added Detection was performed. COMPARISON: Comparison is made with prior study January 20, 2022 and October 04, 2020. FINDINGS: Breast Composition: There are scattered areas of fibroglandular density. There are no dominant masses or suspicious calcifications. No other significant abnormalities are identified. There has been no significant change since the prior study. BI/SCRN MAMM (CAD)W/ANGELICA BILAT IMPRESSION: Stable bilateral screening mammogram. Yearly follow-up mammogram recommended. (A) ASSESSMENT CATEGORY: BIRADS Category 1: Negative. A letter regarding these results will be sent to the patient by the facility within 30 days. Approximately 10% of breast cancers are not detected by mammography. A normal mammogram should not delay biopsy of a clinically suspicious abnormality. [id number] Electronically Signed: Eusebio Juares MD at 8:46 EST ,
== END | disposition home or self-care (01) ==
LOC: OPBI 15:42
PROVIDERS: PCP Internal Medicine; Referring Provider Internal Medicine; Visit Provider Internal Medicine
DX: Z12.31 Encounter for screening mammogram for malignant neoplasm of breast (principal)
CPT/HCPCS: 77063; 77067

== ENCOUNTER → 2023-06-17 | Outpatient (CLI) | payer MEDICARE, OTHER, SELFPAY ==
--- NOTE | 2023-06-17 15:53 | US_ITS ---
STUDY: THYROID ULTRASOUND REASON FOR EXAM: Female, 68 years old. thyroid nodule TECHNIQUE: Ultrasound evaluation of the thyroid was performed with real-time and static erickson-scale imaging. COMPARISON: None. FINDINGS: RIGHT LOBE: The right lobe of the thyroid gland measures 5.5 x 2.0 x 2.1 cm. There is a heterogeneous echotexture. There is increased vascularity and a diffuse nodular pattern with a few circumscribed and dominant nodules present. The largest nodules in the posterior lateral aspect of the right lobe measuring 1 cm. These nodules have benign features of adenomas or hyperplastic parenchyma. The bilateral parathyroid glands are visualized and do not represent thyroid nodules. LEFT LOBE: The left lobe of the thyroid gland measures 6.0 x 2.0 x 1.9 cm. There is a heterogeneous echotexture. There is increased vascularity and a diffuse nodular pattern with a few circumscribed and dominant nodules present. The largest nodules in the posterior lateral aspect of the left lobe is just beneath the centimeter. These nodules have benign features of adenomas or hyperplastic parenchyma. The bilateral parathyroid glands are visualized and do not represent thyroid nodules. ISTHMUS: The isthmus measures 0.7 cm. The regional lymph nodes are normal. US/Head/Neck Soft Tissue IMPRESSION: Overall appearance suggests multinodular goiter 1. There is increased vascularity and a diffuse nodular pattern with a few circumscribed and dominant nodules present. These nodules have benign features of adenomas or hyperplastic parenchyma. The bilateral parathyroid glands are visualized and do not represent thyroid nodules. Electronically Signed: Jovon Narvaez MD at 13:13 EST ,
--- NOTE | 2023-06-17 16:15 | CT_ITS ---
INDICATION: dilated aortic root EXAMINATION: CT CHEST WITHOUT CONTRAST - CT Chest W/O Contrast Injection TECHNIQUE: Helically acquired images were obtained of the chest. A radiation dose optimization technique was used for this scan. IV Contrast dosage and agent: None. COMPARISON: 10/15/2020. FINDINGS: LUNGS, PLEURA AND LARGE AIRWAYS: Mild bilateral lower lobe atelectasis. There is a left lower lobe nodule measuring 8.6 mm with subtle groundglass component, new in the interval. Remainder of the lung alex are clear.. No pleural effusion or thickening. No pneumothorax. THYROID: No thyroid lesions. HEART AND PERICARDIUM: Borderline cardiomegaly. No pericardial effusion. CORONARY ARTERIES: Mild coronary artery calcification is seen. VESSELS: Mild atherosclerosis throughout the aorta, the ascending aorta measuring 3.7 cm, the aorta measuring 2.8 cm the aortic arch and approximately 2.6 cm through the descending portion. MEDIASTINUM AND MATT: No mediastinal or hilar adenopathy. Esophagus is unremarkable. No hiatal hernia. UPPER ABDOMEN: No acute pathology. BONES: Multilevel degenerative disease of the spine with no acute fracture or subluxation. CT/Chest without Contrast IMPRESSION: Left lower lobe nodule measuring approximately 8.6 mm, recommend follow-up with at 6 months interval to evaluate stability. Mild bilateral lower lobe atelectasis, otherwise no acute cardiac pulmonary disease. Mild atherosclerosis of aorta with no aneurysmal dilatation. Electronically Signed: Jessica Villeda MD at 22:47 EST ,
== END | disposition home or self-care (01) ==
LOC: CT 15:52
PROVIDERS: PCP Internal Medicine; Referring Provider Internal Medicine; Visit Provider Internal Medicine
DX: I77.810 Thoracic aortic ectasia (principal); E04.1 Nontoxic single thyroid nodule
CPT/HCPCS: 71250; 76536

== ENCOUNTER → 2023-07-21 | Outpatient (CLI) | payer MEDICARE, OTHER, SELFPAY ==
--- NOTE | 2023-07-21 07:56 | ECHOD_ITS ---
Reason For Study: NON RHEUMATIC AV STENOSIS Procedure This was a 2D Doppler, Color Flow transthoracic echocardiogram. Exam performed in department. Left Ventricle Normal LV size. Left ventricular systolic function is normal. The estimated ejection fraction is 65 %. Diastolic function is indeterminate. No regional wall motion abnormalities noted. Right Ventricle Normal RV size. Normal systolic function. Atria The left atrium is mildly enlarged. Normal right atrium. Mitral Valve The mitral valve is structurally normal. No prolapse or stenosis seen. Tricuspid Valve Normal tricuspid valve. Trivial tricuspid valve insufficiency. Unable to estimate RV systolic pressure due to insufficient tricuspid regurgitant envelope. Aortic Valve Trisinus/trileaflet aortic valve. Aortic sclerosis, no stenosis. Moderate focal thickening and calcification of the noncoronary cusp of the aortic valve. Pulmonic Valve Normal pulmonic valve. Trivial pulmonic valve insufficiency. Great Vessels Normal aortic root. Pericardium/Pleural Trivial pericardial effusion. There are no echocardiographic indications of cardiac tamponade. MMode/2D Measurements & Calculations LVIDd: 4.9 cm IVSd: 0.91 cm LVOT diam: 2.0 cm LVIDs: 2.8 cm LVPWd: 0.99 cm LVOT area: 3.1 cm2 RVDd: 3.6 cm FS: 41.5 % Ao root diam: 3.4 cm LAV(MOD-bp): 71.3 ml LVAd ap4: 26.9 cm2 LAV(MOD-bp) Indexed: 36.3 ml/m2 LVLd ap4: 7.3 cm LAV(MOD-sp2): 72.1 ml EDV(MOD-sp4): 82.1 ml LAV(MOD-sp4): 71.5 ml EDV(sp4-el): 84.1 ml LVAs ap4: 14.1 cm2 LVLs ap4: 5.8 cm ESV(MOD-sp4): 29.0 ml ESV(sp4-el): 29.1 ml EF(MOD-sp4): 64.7 % EF(sp4-el): 65.4 % LVAd ap2: 27.6 cm2 SV(MOD-sp4): 53.1 ml SV(MOD-sp2): 51.2 ml LVLd ap2: 8.2 cm EDV(MOD-sp2): 77.2 ml EDV(sp2-el): 79.0 ml LVAs ap2: 13.5 cm2 LVLs ap2: 6.0 cm ESV(MOD-sp2): 26.0 ml ESV(sp2-el): 25.9 ml EF(MOD-sp2): 66.4 % SV(sp4-el): 55.0 ml LA dimension(2D): 4.3 cm LA A4 area: 23.3 cm2 RA A4 area: 14.0 cm2 TAPSE: 2.5 cm Time Measurements MV dec time: 0.20 sec Doppler Measurements & Calculations MV E max stephon: 62.2 cm/sec Lat Peak E' Stephon: 6.3 cm/sec Med Peak E' Stephon: 6.8 cm/sec MV A max stephon: 77.7 cm/sec E/E' lat: 9.9 E/E' med: 9.2 MV E/A: 0.80 Ao V2 max: 186.7 cm/sec LV V1 max: 156.6 cm/sec MV dec slope: 306.4 cm/sec2 Ao max P.9 mmHg LV V1 max P.8 mmHg Ao V2 mean: 121.4 cm/sec LV V1 mean P.6 mmHg Ao mean P.9 mmHg LV V1 mean: 111.4 cm/sec Ao V2 VTI: 44.6 cm LV V1 VTI: 36.1 cm AV (velocity ratio): 0.81 LUKE(I,D): 2.5 cm2 LUKE(V,D): 2.6 cm2 SV(LVOT): 111.6 ml PA V2 max: 121.6 cm/sec PA V2 mean: 80.3 cm/sec ECHO/Echo Complete Interpretation Summary The estimated ejection fraction is 65 %. Diastolic function is indeterminate. The left atrium is mildly enlarged. Aortic sclerosis, no stenosis. Moderate focal thickening and calcification of the noncoronary cusp of the aort ic valve. Compared to prior study, there is no significant change. Ordering Physician: Sneha Veronica Referring Physician: Sneha Veronica Performed By: Wendy Balbuena, ALEXANDRUCS, RVT
== END | disposition home or self-care (01) ==
LOC: CVS 07:47
PROVIDERS: PCP Internal Medicine; Referring Provider Internal Medicine; Visit Provider Internal Medicine
DX: I35.0 Nonrheumatic aortic (valve) stenosis (principal)
CPT/HCPCS: 93306

== ENCOUNTER → 2023-09-18 | Outpatient (CLI) | payer MEDICARE, OTHER, SELFPAY ==
--- NOTE | 2023-09-18 08:37 | CT_ITS ---
INDICATION: new lung nodule EXAMINATION: CT CHEST WITHOUT CONTRAST - CT Chest W/O Contrast Injection TECHNIQUE: Helically acquired images were obtained of the chest. A radiation dose optimization technique was used for this scan. IV Contrast dosage and agent: None. COMPARISON: June 17, 2023 FINDINGS: LUNGS, PLEURA AND LARGE AIRWAYS: No masses, consolidation, or edema. No pleural effusion or thickening. No pneumothorax. THYROID: Small left thyroid nodule. HEART AND PERICARDIUM: Heart size is normal. Small pericardial effusion. CORONARY ARTERIES: Coronary artery calcification VESSELS: Mild atherosclerotic change of the aorta without evidence for aneurysm. MEDIASTINUM AND MATT: No mediastinal or hilar adenopathy. Esophagus is unremarkable. No hiatal hernia. UPPER ABDOMEN: No acute pathology. BONES: Dorsal spine demonstrates degenerative change No suspicious lytic or blastic abnormality. Previously noted left lower lobe nodule not visualized at this time and may have represented inflammatory change which has resolved CT/Chest without Contrast IMPRESSION: ASHD. No acute cardiopulmonary pathology. No discrete nodules seen at this time. Incidental finding of left thyroid nodule which may be further assessed with ultrasound. Electronically Signed: Tesfaye Bahena MD at 16:38 EDT ,
== END | disposition home or self-care (01) ==
LOC: CT 08:36
PROVIDERS: PCP Internal Medicine; Referring Provider Nurse Practitioner Acute Care; Visit Provider Nurse Practitioner Acute Care
DX: R91.1 Solitary pulmonary nodule (principal)
CPT/HCPCS: 71250

== ENCOUNTER → 2024-02-02 | Outpatient (CLI) | payer MEDICARE, OTHER, SELFPAY ==
--- NOTE | 2024-02-02 08:34 | BD_ITS ---
STUDY: DUAL ENERGY X-RAY ABSORPTIOMETRY / DXA REASON FOR EXAM: Female, 68 years old. Z780 TECHNIQUE: Bone Mineral Density (BMD) measurements of lumbar spine and bilateral hips were obtained. COMPARISON: Comparison is made with prior study January 20, 2022. FINDINGS: Lumbar Spine (L1-L4): g/cm2 (0.767) / T-score (-3.0) / Z-score (-0.8) Findings are suggestive of osteoporosis with a high fracture risk. Left Femur Total: g/cm2 (0.694) / T-score (-2.0) / Z-score (-0.5) Left Femoral Neck: g/cm2 (0.598) / T-score (-2.3) / Z-score (-0.4) Right Femur Total: g/cm2 (0.653) / T-score (-2.4) / Z-score (-0.8) Right Femoral Neck: g/cm2 (0.582) / T-score (-2.4) / Z-score (-0.6) The T-Scores on the most recent prior examination were: Lumbar Spine (L1-L4): There has been worsening of bone density since the previous examination. Left Femur Total: which represents a worsening of 5.7%. Right Femur Total: which represents a worsening of 8.6%. BD/Dexa Bone Density Study IMPRESSION: The patient is considered osteoporotic as outlined below according to World Trevor Organization (WHO) criteria with a high fracture risk. There has been worsening of bone density since the previous examination. Reference Information: The T-score is the number of standard deviations above or below the standard which is normal for young adults at their peak bone mineral density. The World Health Organization (WHO) interprets the T-scores as follows: Above -1 Normal bone density Between -1 and -2.5 Osteopenia Equal to / or below -2.5 Osteoporosis As a practical clinical guideline, osteopenia may be graded as follows: Mild -1 through -1.5 Moderate -1.6 through -2.0 Severe -2.1 through -2.4 The Z-score is the number of standard deviations above or below age-matched controls. A Z-score of less than -1.5 would be considered abnormal. References: 1. NIH Osteoporosis and Related Bone Diseases www osteo.org 2. International Society for Clinical Densitometry www iscd.org 3. National Osteoporosis Foundation www nof.org Electronically Signed: Eusebio Juares MD at 10:25 EDT ,
== END | disposition home or self-care (01) ==
LOC: OPBD 08:24
PROVIDERS: PCP Internal Medicine; Referring Provider Internal Medicine; Visit Provider Internal Medicine
DX: Z78.0 Asymptomatic menopausal state (principal)
CPT/HCPCS: 77080

== ENCOUNTER 2024-02-15 14:42 | Outpatient (RCR) | payer MEDICARE, OTHER, SELFPAY ==
--- NOTE | 2024-02-15 15:35 | HP.PTREVAL ---
Re-Evaluation Intro: Dr. Sneha Veronica, DO, It has been my pleasure to treat VIGNESH VENCES over the last 1 visits for cervical radiculopathy. Please see the progress note below for an update on the physical therapy plan of care! Plan Plan Plan: 2-3x/week for 3-6 for: IE: UT stretch R, c/s ret ext 12x every two hours with OP, posture. Ho given Please focus on R UT and scm and lev scap STM and PA mobs cervical and manual traction and PROM with MH to neck. Ensure HEP going well and postural focus. Cleopatra ext and progression of forces. progress to stregnth posture, cervical and er when improved. US if knots still found in R UT SCM area. Balance/Gait/Functional tests Balance/Special Test Scores Oswestry Neck Score: 11 Goals Goals Goal 1:: Sleep without waking due to pain Goal Time Frame: 4-6 Weeks Goal 2:: full cervical aROM without pain Goal Time Frame: 4-6 Weeks Goal 3:: weakness in R ext rot and empty can abolished. Goal Time Frame: 4-6 Weeks Goal 4:: Pt report 80% improvement in overall condition Goal Time Frame: 4-6 Weeks Goal 5:: neck oswestry score 5 or better Goal Time Frame: 4-6 Weeks Anticipated Interventions Anticipated Interventions Patient/Client Instruction: Educate patient on: Condition For the Purpose of:: To decrease pain, To increase ROM, To improve nutrient delivery to tissue, To improve muscle performance and motor function and To increase tolerance to activity/condition/position Therapeutic Exercise to Include: Strength training, Postural training, Flexibilty training, Passive ROM and Active ROM For the Purpose of:: To decrease pain, To increase ROM, To improve nutrient delivery to tissue, To improve muscle performance and motor function and To improve ability of physical actions for home/community/work/leisure Manual Therapy Techniques to Include: Mobilization, Passive ROM and Soft tissue mobilization For the Purpose of:: To decrease pain, To increase ROM, To improve nutrient delivery to tissue and To improve muscle performance and motor function Thermo therapy (hot pack): Yes Ultrasound (thermal/non thermal): Yes For the Purpose of:: To decrease pain, To decrease swelling/inflammation and To improve nutrient delivery to tissue Re-Evaluation Ending Re-evaluation ending: Please do not hesitate to contact me at [phone] by phone or if you have questions or concerns regarding this new plan of care! Sincerely, Hang Espinal, DPT, OCS, CSCS
--- NOTE | 2024-02-15 15:35 | HP.PTEVAL ---
Patient's Visit Information Visit Information Visit Information: VIGNESH VENCES is a 68 year old F referred to Physical Therapy by Dr. Sneha Veronica DO with a diagnosis of cervical radiculopathy. Date of Evaluation: 02/15/24 Physical Therapist: Hang Espinal, DPT, OCS, CSCS Visit Plan Frequency: 2-3x /Week Duration: 4-6 Weeks Plan: 2-3x/week for 3-6 for: IE: UT stretch R, c/s ret ext 12x every two hours with OP, posture. Ho given Please focus on R UT and scm and lev scap STM and PA mobs cervical and manual traction and PROM with MH to neck. Ensure HEP going well and postural focus. Cleopatra ext and progression of forces. progress to stregnth posture, cervical and er when improved. US if knots still found in R UT SCM area. Subjective Subjective: R ear pain and into neck, been going on for 9 months without incidence. Did have ear cleaned out and ear pain about 9 months ago. Seen two ENTs and think that it is not TMJ. Is to try PT. No h/o neck problems. No diagnositcs mri or x rays. No arm symptoms. WATERS R frontal and occiptial. has lots of allergies. No WATERS prior to this. Pain is intermittent and wakes her up at times if lying on R ear. 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 Basic ADLs bathroom, laundry etc are OK. Hobbies: work at the shoe store. Takes care of house. No regular exercise. Pain R ear area: Pain Intensity (Out of 10): 1 Pain Intensity Range: 0 and 6 Comment: lying on it is worse Objective Objective: Posture is forward head and protracted scap. cervical ext pain with OP to 50 and B rotation to 70 without pain, SB B to 20 with tightness R side SCM and lev scap. Tender to touch R supraspinatus and lev scap and UT. - cervical compression. UE AROM WFL, strength deficits in R ext rotation and empty can with some shoulder pain. Otherwise 4/5(er at 3+ on R) elbow and wrist normal ROM and symmetrical strength. reflexes 2/3 bi and tri. Sensation UE WNL to gross light touc. repeated ret NE repeated ext Better motion and maybe better strength er R. Balance/Special Test Scores Oswestry Neck Score: 11 Goals Goal 1:: Sleep without waking due to pain Goal Time Frame: 4-6 Weeks Goal 2:: full cervical aROM without pain Goal Time Frame: 4-6 Weeks Goal 3:: weakness in R ext rot and empty can abolished. Goal Time Frame: 4-6 Weeks Goal 4:: Pt report 80% improvement in overall condition Goal Time Frame: 4-6 Weeks Goal 5:: neck oswestry score 5 or better Goal Time Frame: 4-6 Weeks Rehabilitation Potential Physical Therapy Diagnosis: liomited cervical ROM, weakness and tightness limiting comfortable funciton. Rehabilitation Potential: Fair Anticipated Interventions Patient/Client Instruction: Educate patient on: Condition For the Purpose of:: To decrease pain, To increase ROM, To improve nutrient delivery to tissue, To improve muscle performance and motor function and To increase tolerance to activity/condition/position Therapeutic Exercise to Include: Strength training, Postural training, Flexibilty training, Passive ROM and Active ROM For the Purpose of:: To decrease pain, To increase ROM, To improve nutrient delivery to tissue, To improve muscle performance and motor function and To improve ability of physical actions for home/community/work/leisure Manual Therapy Techniques to Include: Mobilization, Passive ROM and Soft tissue mobilization For the Purpose of:: To decrease pain, To increase ROM, To improve nutrient delivery to tissue and To improve muscle performance and motor function Thermo therapy (hot pack): Yes Ultrasound (thermal/non thermal): Yes For the Purpose of:: To decrease pain, To decrease swelling/inflammation and To improve nutrient delivery to tissue Text: Thank you for the opportunity to evaluate your patient. For Medicare and Medicare HMO plans, please review the plan of care and approve it. It will need to be FAXED BACK to us at [phone] for Medicare purposes. For Medicare only, by signing this I certify the plan of care. Please let me know if there are questions or concerns regarding this plan of care. Physician Signature: Date:
--- NOTE | 2024-04-20 10:26 | HP.PTDCNRP_ITS ---
Patient Information Patient Information: VIGNESH VENCES was seen in my office for initial evaluation on 02/15/24. The following Plan of Care was established for this patient: POC Established Initial Frequency: 2-3x /Week Initial Duration: 4-6 Weeks Anticipated Interventions Patient/Client Instruction: Educate patient on: Condition For the Purpose of:: To decrease pain, To increase ROM, To improve nutrient delivery to tissue, To improve muscle performance and motor function and To increase tolerance to activity/condition/position Therapeutic Exercise to Include: Strength training, Postural training, Flexibilty training, Passive ROM and Active ROM For the Purpose of:: To decrease pain, To increase ROM, To improve nutrient delivery to tissue, To improve muscle performance and motor function and To improve ability of physical actions for home/community/work/leisure Manual Therapy Techniques to Include: Mobilization, Passive ROM and Soft tissue mobilization For the Purpose of:: To decrease pain, To increase ROM, To improve nutrient delivery to tissue and To improve muscle performance and motor function Thermo therapy (hot pack): Yes Ultrasound (thermal/non thermal): Yes For the Purpose of:: To decrease pain, To decrease swelling/inflammation and To improve nutrient delivery to tissue Last Seen Last Seen: This patient was last seen in our office 02/15/24. Pertinent comments regarding their Physical therapy will appear below: Pt seen for initial evaluation and PCO established. Pt did not schedule or return for any further visits. At this point, it has been over two months and I will discontinue from my care. At this point I will be discontinuing this patient from physical therapy. I wo uld be happy to see this patient again in the future if found appropriate by the physician. Thank you! Hang Espinal, DPT, OCS, CSCS Balance/Gait/Functional tests Balance/Special Test Scores Oswestry Neck Score: 11
== END 2024-02-15 19:00 | disposition home or self-care (01) ==
LOC: PT 14:42
PROVIDERS: PCP Internal Medicine; Referring Provider Internal Medicine; Visit Provider Internal Medicine
DX: M54.2 Cervicalgia (principal); R51.9 Headache, unspecified; M54.12 Radiculopathy, cervical region
CPT/HCPCS: 97110; 97161

== ENCOUNTER → 2024-10-03 | Outpatient (CLI) | payer MEDICARE, OTHER, SELFPAY ==
[2024-10-03 07:38] LABS: Absolute Lymphocyte Count 1.99 X10^3/uL (0.83-4.51); Absolute Neutrophil Count 3.5 X10^3/uL (2.0-7.7); Basophil# 0.03 X10^3/uL; Basophil% 0.5 % (0-1); Eosinophils% 1.6 % (0-5); Hematocrit 38.5 % (37-47); Hemoglobin 12.5 g/dL (12.0-15.0); Lymphocyte # 1.99 X10^3/ul (0.83-4.51); Lymphocyte % 32.6 % (19-41); Mean Corp Hgb Conc 32.5 g/dL (32-36); Mean Corpuscular Hgb 30.9 pg (27.0-32.0); Mean Corpuscular Volume 95.1 fL (81-99); Mean Platelet Vol. 9.6 fl (6.2-12.0); Monocyte% 8.2 % (0-10); NRBC Flagged by Analyzer 0 % (0-5); Neutrophil # 3.47 X10^3/uL (2.7-7.7); Neutrophil % 56.9 % (47-70); Platelet Count 343 K/mm3 (150-450); RBC Distribution Width CV 13.5 % (11.6-14.6); RBC Distribution Width SD 47.8 fl (35.1-43.9); Red Blood Count 4.05 M/mm3 (4.2-5.4); White Blood Count 6.1 K/mm3 (4.4-11.0)
[2024-10-03 08:34] LABS: ALB/GLOB Ratio 1.5 RATIO (0.9-2.4); AST(SGOT) 18 U/L (<=31); Alanine Aminotransfer ALT/SGPT 21 U/L (<=34); Albumin, Serum 3.8 g/dL (3.4-4.8); Alkaline Phosphatase 66 U/L (35-104); Anion Gap 8 (5-15); BUN 15 mg/dL (4-19); BUN/Creat Ratio 24.3 RATIO (10-20); Calcium,Total 9.3 mg/dL (7.6-11.0); Carbon Dioxide 27.6 mmol/L (21.0-32.0); Chloride 107 mmol/L (98-108); Creatinine, Serum 0.61 mg/dL (0.70-1.20); EST Glomerular Filtration Rate 96 (>60); Globulin 2.5 g/dL (2.2-4.2); Glucose 111 mg/dL (70-99); Protein, Total 6.2 g/dL (5.9-8.4); Sodium Level 143 mmol/L (133-145); Total Bilirubin 0.24 mg/dL (0.00-1.30); Vitamin D,25 Hydroxy 37.5 ng/mL (30-100)
== END | disposition home or self-care (01) ==
LOC: LAB 07:15
PROVIDERS: PCP Internal Medicine; Referring Provider Specialist; Visit Provider Specialist
DX: J32.9 Chronic sinusitis, unspecified (principal); T78.09XD Anaphylactic reaction due to other food products, subsequent encounter; X58.XXXD Exposure to other specified factors, subsequent encounter; E07.9 Disorder of thyroid, unspecified; E55.9 Vitamin D deficiency, unspecified; R42 Dizziness and giddiness
CPT/HCPCS: 36415; 80053; 82306; 84443; 85025

== ENCOUNTER → 2024-10-31 | Outpatient (CLI) | payer MEDICARE, OTHER, SELFPAY ==
--- NOTE | 2024-10-31 12:44 | MRI_ITS ---
PROCEDURE: BRAIN WITHOUT CONTRAST 10/31/2024 REASON FOR EXAM: WEAKNESS, DIZZINESS TECHNIQUE: Noncontrast brain MRI. Multiplanar and multisequence images were obtained. COMPARISON: None. FINDINGS: Brain: Normal signal intensities. Ventricles: Normal. Major Intracranial Vessels: Normal flow voids. Sinuses: Clear. Mastoids: Clear. MRI/Brain without Contrast IMPRESSION: NORMAL NONCONTRAST MRI OF THE BRAIN. Reading Location: [place] [id number]
== END | disposition home or self-care (01) ==
LOC: MRI 12:40
PROVIDERS: PCP Internal Medicine; Referring Provider Internal Medicine; Visit Provider Internal Medicine
DX: R53.1 Weakness (principal); R42 Dizziness and giddiness
CPT/HCPCS: 70551

== ENCOUNTER → 2024-11-13 | Outpatient (CLI) | payer MEDICARE, OTHER, SELFPAY ==
--- NOTE | 2024-11-13 08:00 | BI_ITS ---
EXAM: SCRN MAMM (CAD)W/ANGELICA BILAT DATE: 11/13/2024 CLINICAL HISTORY: F, Age 69 y/o , SCREEN FOR BREAST CANCER BREAST CANCER RISK ASSESSMENT: Has not been calculated. TECHNIQUE: Bilateral screening digital breast tomosynthesis with 2D and 3D images. Computer aided detection. COMPARISON: Prior exam(s) dated 05/27/2023 and 01/20/2022. FINDINGS: TISSUE DENSITY: The breast tissue is composed of scattered area of fibroglandular density. Bilateral Breast Mammographic Findings: There are no suspicious masses, suspicious clustered microcalcifications, architectural distortion or secondary signs of malignancy identified in either breast. Benign appearing round microcalcifications are seen in both breasts. BI/SCRN MAMM (CAD)W/ANGELICA BILAT IMPRESSION: OVERALL FINAL ASSESSMENT: BIRADS 2 BENIGN FINDING RECOMMENDATION: Routine annual follow-up in 1 Year A letter with findings and recommendations will be mailed to the patient. Reading Location: [id number]
== END | disposition home or self-care (01) ==
LOC: OPBI 07:53
PROVIDERS: PCP Internal Medicine; Referring Provider Internal Medicine; Visit Provider Internal Medicine
DX: Z12.31 Encounter for screening mammogram for malignant neoplasm of breast (principal)
CPT/HCPCS: 77063; 77067

== ENCOUNTER → 2024-12-25 | Outpatient (CLI) | payer MEDICARE, OTHER, SELFPAY ==
[2024-12-25 09:15] LABS: Hematocrit 38.2 % (37-47); Hemoglobin 12.5 g/dL (12.0-15.0); Immature Granulocytes Count 0.020 X10^3/uL (0.0-0.0); Mean Corp Hgb Conc 32.7 g/dL (32-36); Mean Corpuscular Volume 95.0 fL (81-99); Platelet Count 375 K/mm3 (150-450); RBC Distribution Width CV 12.9 % (11.6-14.6); RBC Distribution Width SD 44.6 fl (35.1-43.9); Red Blood Count 4.02 M/mm3 (4.2-5.4); White Blood Count 7.7 K/mm3 (4.4-11.0)
[2024-12-25 09:17] LABS: Mean Platelet Vol. 9.7 fl (6.2-12.0)
[2024-12-29 12:09] LABS: Bluegrass, Kentucky <0.10 kU/L (Class 0); Cat Hair/Dander, Standard <0.10 kU/L (Class 0); Dog Epithelia <0.10 kU/L (Class 0); Elm, American White <0.10 kU/L (Class 0); Oak, White <0.10 kU/L (Class 0); Plantain, English <0.10 kU/L (Class 0); Ragweed, Short/Common <0.10 kU/L (Class 0)
[2024-12-29 23:07] LABS: Aspirgillus flavus Negative (Neg:<1:1); Aspirgillus fumigatus Negative (Neg:<1:1); Aspirgillus niger Negative (Neg:<1:1)
== END | disposition home or self-care (01) ==
LOC: PAVLAB 08:47
PROVIDERS: PCP Internal Medicine; Referring Provider Nurse Practitioner Acute Care; Visit Provider Nurse Practitioner Acute Care
DX: J30.2 Other seasonal allergic rhinitis (principal)
CPT/HCPCS: 36415; 82785; 85025; 86003; 86606

== ENCOUNTER → 2024-12-28 | Outpatient (CLI) | payer MEDICARE, OTHER, SELFPAY ==
[2024-12-28 09:45] LABS: Hematocrit 35.4 % (37-47); Hemoglobin 11.7 g/dL (12.0-15.0); Immature Granulocytes Count 0.020 X10^3/uL (0.0-0.0); Mean Corp Hgb Conc 33.1 g/dL (32-36); Mean Corpuscular Volume 92.9 fL (81-99); Mean Platelet Vol. 9.8 fl (6.2-12.0); NRBC Flagged by Analyzer 0 % (0-5); Platelet Count 340 K/mm3 (150-450); RBC Distribution Width CV 13.1 % (11.6-14.6); RBC Distribution Width SD 44.8 fl (35.1-43.9); Red Blood Count 3.81 M/mm3 (4.2-5.4); White Blood Count 7.2 K/mm3 (4.4-11.0)
[2024-12-28 09:56] LABS: CRP < 3.00 mg/L (0.0-3.0); Uric Acid 4.0 mg/dL (2.6-6.0)
--- NOTE | 2024-12-28 12:44 | ECHOD_ITS ---
Reason For Study Reason For Study: DYSPNEA Procedure This was a 2D Doppler, Color Flow transthoracic echocardiogram. Exam performed in department. Left Ventricle Normal LV size. Mild concentric left ventricular hypertrophy. The LV ejection fraction is 65 %. Stage 1 diastolic dysfunction. Right Ventricle Normal right ventricle. Atria The left atrium is mildly enlarged. Normal right atrium. Mitral Valve Trivial mitral valve insufficiency. Tricuspid Valve Normal tricuspid valve. Aortic Valve Moderately calcified noncoronary cusp of the aortic valve. Aortic valve sclerosis. No stenosis. Pulmonic Valve The pulmonic valve is not well visualized. Trivial pulmonic valve insufficiency. Great Vessels Normal sized aortic root. Pericardium/Pleural No pericardial effusion. MMode/2D Measurements & Calculations LVIDd: 4.0 cm IVSd: 1.4 cm LVOT diam: 2.0 cm LVIDs: 2.8 cm LVPWd: 1.5 cm LVOT area: 3.0 cm2 FS: 28.5 % LA dimension: 4.5 cm LAV(MOD-bp): 54.1 ml LVAd ap4: 25.5 cm2 LAV(MOD-bp) Indexed: 27.5 ml/m2 LVLd ap4: 7.6 cm LAV(MOD-sp2): 37.0 ml EDV(MOD-sp4): 72.5 ml LAV(MOD-sp4): 72.4 ml EDV(sp4-el): 73.2 ml LVAs ap4: 10.9 cm2 LVLs ap4: 5.4 cm ESV(MOD-sp4): 19.7 ml ESV(sp4-el): 18.5 ml EF(MOD-sp4): 72.8 % EF(sp4-el): 74.7 % SV(MOD-sp4): 52.8 ml SV(sp4-el): 54.7 ml LA A4 area: 22.6 cm2 SI(MOD-sp4): 26.8 ml/m2 RA A4 area: 11.6 cm2 Time Measurements MV dec time: 0.23 sec Doppler Measurements & Calculations MV E max stephon: 95.1 cm/sec Lat Peak E' Stephon: 8.5 cm/sec Med Peak E' Stephon: 7.7 cm/sec MV A max stephon: 93.4 cm/sec E/E' lat: 11.2 E/E' med: 12.3 MV E/A: 1.0 MV V2 max: 102.3 cm/sec Ao V2 max: 230.4 cm/sec MV max P.2 mmHg MV dec slope: 422.4 cm/sec2 Ao max P.3 mmHg MV V2 mean: 49.7 cm/sec Ao V2 mean: 145.9 cm/sec MV mean P.2 mmHg Ao mean P.8 mmHg MV V2 VTI: 31.8 cm Ao V2 VTI: 55.0 cm AV (velocity ratio): 0.63 MVA(VTI): 3.3 cm2 LUKE(I,D): 1.9 cm2 LUKE(V,D): 2.1 cm2 LV V1 max: 157.4 cm/sec SV(LVOT): 105.0 ml LV V1 max P.9 mmHg LV V1 mean P.0 mmHg LV V1 mean: 103.7 cm/sec LV V1 VTI: 34.4 cm ECHO/Echo Complete Interpretation Summary Mild concentric left ventricular hypertrophy. The LV ejection fraction is 65 %. Stage 1 diastolic dysfunction. The left atrium is mildly enlarged. Moderately calcified noncoronary cusp of the aortic valve. Aortic valve scleros is. No stenosis. Ordering Physician: Jerry Menendez Referring Physician: Jrery Menendez Performed By: Jaimee Aguilar and Student
== END | disposition home or self-care (01) ==
LOC: CVS 12:39
PROVIDERS: PCP Internal Medicine; Referring Provider Internal Medicine Cardiovascular Disease; Visit Provider Internal Medicine Cardiovascular Disease
DX: I35.0 Nonrheumatic aortic (valve) stenosis (principal); M25.461 Effusion, right knee; M25.561 Pain in right knee; Z96.651 Presence of right artificial knee joint
CPT/HCPCS: 36415; 84550; 85025; 85652; 86140; 93306